=== PATIENT | male | born 1960 | race Two or more races ===

== ENCOUNTER 2016-08-05 15:14 | Emergency (ER) | payer SELFPAY ==
--- NOTE | 2016-08-05 15:46 | EDM.PDOC ---
ED HPI GENERAL MEDICAL PROBLEM - General Chief Complaint: Lower Extremity Injury/Pain Stated Complaint: RIGHT FOOT ULCER Time Seen by Provider: 08/05/16 15:22 Source of Information: Reports: Patient, RN Notes Reviewed History Limitations: Reports: Language Barrier (Used historic interpreter) - History of Present Illness INITIAL COMMENTS - FREE TEXT/NARRATIVE: Through an per diem interpreter, the patient states that he developed swelling, erythema , and pain to the sole of his right foot about a week ago. He presumes that he injured it, but does not recall a specific injury. He states that over the past couple of days the ulceration has had a watery drainage. The patient has taken Tylenol and a sleeping pill to treat the discomfort, but has not attempted to treat the wound with any home remedies, salves, or pumices. No prior similar symptoms. The patient believes that he has had a fever, but has not checked his temperature. He is afebrile here in the ED. The patient does not have a PCP. His last general physical exam was about 15 years ago. 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) Review of Systems - Review of Systems Review Of Systems: See Below Constitutional: Reports: Fever (subjective, as per the HPI) Eyes: Reports: No Symptoms Ears: Reports: No Symptoms Nose: Reports: No Symptoms Mouth/Throat: Reports: No Symptoms Respiratory: Reports: No Symptoms Cardiovascular: Reports: No Symptoms GI/Abdominal: Reports: No Symptoms Genitourinary: Reports: No Symptoms Musculoskeletal: Reports: No Symptoms Skin: Reports: No Symptoms Neurological: Reports: No Symptoms Psychiatric: Reports: No Symptoms Trauma Exam - Physical Exam Exam: See Below Exam Limited By: No Limitations General Appearance: Reports: Alert, WD/WN, No Apparent Distress Extremities: Other (There is a desquamated ulcer on the sole of the right foot, just proximal to being over the fifth MTP joint, measuring approximately 2.0 centimeters in diameter. There is a black center, consistent with eschar. Erythema with swelling extends medially across the sole of the foot. The ulcer and the erythematous area are tender to palpation. Neurovascular status of the right foot is intact.) Course - Vital Signs Last Recorded V/S: Last Vital Signs Temp 36.8 C 08/05/16 15:22 Pulse 88 08/05/16 15:22 Resp 18 08/05/16 15:22 BP 134/94 H 08/05/16 15:22 Pulse Ox 95 08/05/16 15:22 - Orders/Labs/Meds Orders: Active Orders 24 hr Category Date Time Status Accu Check [Blood Glucose Check, Bedside] [RC] ONETIME Care 08/05/16 15:43 Active Foot w Cont Rt [CT] Stat Exams 08/05/16 15:55 Taken Sodium Chloride 0.9% [Normal Saline] 1,000 ml Med 08/05/16 16:00 Active IV ASDIRECTED Sodium Chloride 0.9% [Saline Flush] Med 08/05/16 15:57 Active 10 ml FLUSH ONETIME PRN Medication Orders Sodium Chloride (Normal Saline) 1,000 mls @ 150 mls/hr IV ASDIRECTED GIBRAN Last Admin: 08/05/16 16:37 Dose: 150 mls/hr Sodium Chloride (Saline Flush) 10 ml FLUSH ONETIME PRN PRN Reason: IV FLUSH Last Admin: 08/05/16 16:22 Dose: 10 ml Labs: Laboratory Tests 08/05/16 08/05/16 Range/Units 16:00 16:00 WBC 17.94 H (4.23-9.07) K/mm3 RBC 5.28 (4.63-6.08) M/mm3 Hgb 15.4 (13.7-17.5) gm/L Hct 44.9 (40.1-51.0) % MCV 85.0 (79.0-92.2) fl MCH 29.2 (25.7-32.2) pg MCHC 34.3 (32.2-35.5) g/dl RDW Std Deviation 40.5 (35.1-43.9) fL Plt Count 329 (163-337) K/mm3 MPV 10.1 (9.4-12.3) fl Neutrophils % (Manual) 84 H (40-60) % Band Neutrophils % 0 (0-10) % Lymphocytes % (Manual) 6 L (20-40) % Atypical Lymphs % 2 % Monocytes % (Manual) 7 (2-10) % Eosinophils % (Manual) 1 (0.8-7.0) % Basophils % (Manual) 0 L (0.2-1.2) Platelet Estimate Adequate Plt Morphology Comment See note RBC Morph Comment Normal Sodium 136 (136-145) mEq/L Potassium 3.6 (3.5-5.1) mEq/L Chloride 99 (98-107) mEq/L Carbon Dioxide 29 (21-32) mEq/L Anion Gap 11.6 (5-15) BUN 13 (7-18) mg/dL Creatinine 1.0 (0.7-1.3) mg/dL Est Cr Clr Drug Dosing 58.33 mL/min Estimated GFR (MDRD) > 60 (>60) mL/min BUN/Creatinine Ratio 13.0 L (14-18) Glucose 115 H (74-106) mg/dL Calcium 9.2 (8.5-10.1) mg/dL Total Bilirubin 0.7 (0.2-1.0) mg/dL AST 27 (15-37) U/L ALT 39 (16-63) U/L Alkaline Phosphatase 105 (46-116) U/L Total Protein 8.9 H (6.4-8.2) g/dl Albumin 3.4 (3.4-5.0) g/dl Globulin 5.5 gm/dL Albumin/Globulin Ratio 0.6 L (1-2) Meds: Medications Generic Name Dose Route Start Last Admin Trade Name Freq PRN Reason Stop Dose Admin Sodium Chloride 1,000 mls @ 150 mls/hr 08/05/16 16:00 08/05/16 16:37 Normal Saline IV 150 mls/hr ASDIRECTED GIBRAN Administration Sodium Chloride 10 ml 08/05/16 15:57 08/05/16 16:22 Saline Flush FLUSH 10 ml ONETIME PRN Administration IV FLUSH Discontinued Medications Generic Name Dose Route Start Last Admin Trade Name Freq PRN Reason Stop Dose Admin Amoxicillin/Clavulanate Potassium 1 tab 08/05/16 15:56 08/05/16 16:39 Augmentin 875 Mg/125 Mg PO 08/05/16 15:57 1 tab ONETIME ONE Administration Hydromorphone HCl 0.5 mg 08/05/16 16:29 08/05/16 16:37 Dilaudid IVPUSH 08/05/16 16:30 0.5 mg ONETIME ONE Administration Hydromorphone HCl 0.5 mg 08/05/16 16:59 08/05/16 17:04 Dilaudid IVPUSH 08/05/16 17:00 0.5 mg ONETIME ONE Administration Iopamidol 100 ml 08/05/16 15:57 08/05/16 16:22 Isovue-300 (61%) IVPUSH 08/05/16 15:58 100 ml ONETIME ONE Administration Levofloxacin 500 mg 08/05/16 16:59 08/05/16 17:06 Levaquin PO 08/05/16 17:00 500 mg ONETIME STA Administration - Radiology Interpretation Free Text/Narrative:: CT of the foot with IV contrast is read by Dr. Ibrahim as: 1. Diffuse subcutaneous edema as well as skin thickening. 2. Soft tissue density within the ball of the foot at the level of the fifth MTP joint. As mentioned above, this could represent phlegmon or early abscess formation. MRI would be helpful to further evaluate. - Re-Assessments/Exams Free Text/Narrative Re-Assessment/Exam: 08/05/16 17:[address] Jackson at 15:19. He recommended we obtain a CT scan of the patient's foot to evaluate for an abscess, and would then come to the ED to evaluate the patient. Dr. Jackson has now evaluated the patient. Using a #11 blade, he unroofed the ulcer, obtaining a small amount of pus. He has reviewed the CT scan and does not believe there is a large fluid collection. He is recommending that the patient soak his foot in warm soapy water twice a day, and completely dry the foot. He is not to ambulate on his right foot. The patient will be prescribed oral amoxicillin and Levaquin, both of which he has been started on. He is to followup with Dr. Jackson on 08/07/2016. In the meantime, we will endeavor to arrange for wound therapy via PT, once or twice a week. Departure - Departure Time of Disposition: 17:43 Disposition: Home, Self-Care 01 Condition: fair Clinical Impression: Foot abscess, right - Discharge Information Referrals: PCP,None [Primary Care Provider] - Isaac Jackson MD [Physician] - Forms: ED Department Discharge Additional Instructions: You were seen in the emergency room for right foot swelling and pain. Workup in the ER included blood work and a CT scan of your foot. Your workup shows that you have an abscess in your right foot. This was drained by Dr. Jackson. You have been started on 2 antibiotics: Take one tablet of the antibiotic Augmentin every 12 hours, starting in the morning, 08/06/2016, as prescribed. Take one tablet of the antibiotic Levaquin daily, starting tomorrow afternoon, , as prescribed. Finish both prescriptions unless told otherwise by Dr. Jackosn. Take [id number] ibuprofen 2-3 tablets (400-600 mg) every 8 hours, with food, as needed for pain. You may take 1 to 2 tablets of the pain medicine [place] up to every 6 hours, as needed for pain not relieved by ibuprofen. If you take [place], do not drive or operate heavy machinery. Richmond will likely cause constipation, so consider taking a stool softener. You are to soak your foot in warm soapy water for 15 minutes, twice a day. You are to then COMPLETELY DRY your foot. You ARE NOT to walk on your right foot at all. Someone will contact you from wound therapy. You are to go once or twice a week. Followup with Dr. Jackson this 08/07/2016. If any other problems, please do not hesitate to return to the ER. - My Orders Last 24 Hours: My Active Orders 08/05/16 15:43 Accu Check [Blood Glucose Check, Bedside] [RC] ONETIME 08/05/16 15:55 Foot w Cont Rt [CT] Stat 08/05/16 15:57 Sodium Chloride 0.9% [Saline Flush] 10 ml FLUSH ONETIME PRN 08/05/16 16:00 Sodium Chloride 0.9% [Normal Saline] 1,000 ml IV ASDIRECTED - Assessment/Plan Last 24 Hours: My Active Orders 08/05/16 15:43 Accu Check [Blood Glucose Check, Bedside] [RC] ONETIME 05/24/17 15:55 Foot w Cont Rt [CT] Stat 08/05/16 15:57 Sodium Chloride 0.9% [Saline Flush] 10 ml FLUSH ONETIME PRN 08/05/16 16:00 Sodium Chloride 0.9% [Normal Saline] 1,000 ml IV ASDIRECTED
[2016-08-05] MEDS ORDERED: Amoxicillin/Clavulanate K 875-125 MG Tab PO ONE (15:56)
[2016-08-05] MEDS ORDERED: Iopamidol 612 MG/ML 100 ML Bottle IVPUSH ONE (15:57)
[2016-08-05] MEDS ORDERED: Sodium Chloride 0.9% 10 ML Syringe FLUSH PRN (15:57)
[2016-08-05] MEDS ORDERED: Sodium Chloride 0.9% 1,000 ML IV SCH (16:00)
[2016-08-05] MEDS ORDERED: HYDROmorphone 0.5 MG/0.5 ML Syringe IVPUSH ONE ×2 (16:29→16:59)
[2016-08-05] MEDS ORDERED: Levofloxacin 500 MG Tab PO STA (16:59)
[2016-08-05 19:03] VITALS: BP 130/91
--- NOTE | 2016-08-06 08:06 | CT ---
CT right foot Technique: Multiple axial sections were obtained through the right foot. Intravenous contrast was utilized. Findings: Diffuse subcutaneous edema is seen as well as skin thickening being seen. Focal soft tissue density is identified within the subcutaneous fat within the ball of the foot at the level of the fifth MTP joint. This focal density could represent phlegmon or early abscess formation. This area measures approximately 4.1 cm. No other finding suspicious for abscess is seen. No bony erosion is identified. No bony fracture is seen. Impression: 1. Diffuse subcutaneous edema as well as skin thickening. 2. Soft tissue density within the ball of the foot at the level of the fifth MTP joint. As mentioned above, this could represent phlegmon or early abscess formation. MRI would be helpful to further evaluate. Diagnostic code #3 MTDD
== END 2016-08-05 18:20 | disposition home or self-care (01) ==
LOC: JD.ED 15:14
DX: L02.611 Cutaneous abscess of right foot (principal)
CPT/HCPCS: 36415; 73701; 80053; 85025; 96361; 96374; 99284; A9270; J1170; J7040; J7050; Q9967; 99283

== ENCOUNTER 2016-08-13 11:53 | Inpatient (IN) | payer SELFPAY ==
--- NOTE | 2016-08-13 14:54 | EDM.PDOC ---
ED HPI GENERAL MEDICAL PROBLEM - General Chief Complaint: Lower Extremity Injury/Pain Stated Complaint: Foot infection Time Seen by Provider: 08/13/16 12:20 Source of Information: Reports: Patient, Old Records, RN Notes Reviewed History Limitations: Reports: Language Barrier (interpretation service utlized ) - History of Present Illness INITIAL COMMENTS - FREE TEXT/NARRATIVE: 56 year old , Albanian speaking, man presents to the ED for evaluation of right foot infection. The patient says he stepped on a nail prior to the onset of symptoms. He has redness, swelling, drainage, and open wounds to the lateral aspect of his right foot. He is not diabetic. He has felt feverish. He says the wound is has not worsened but also has not improved. He was initially seen in the ED on 08/05/[address] Alvarado. He underwent a CT of the foot at that time. The CT showed "1. diffuse subcutaneous edema and skin thickening. 2. soft tissue density within the ball of the foot at the level of the 5th MTP joint. This could represent phlegmon or early abscess formation. MRI would be helpful. Dr. Alvarado then consulted Dr. Jackson who "unroofed the ulcer" and obtained a small amount of pus. The patient was started on Levaquin and Augmentin. He was instructed to f/u with Dr. Jackson on 08/07/16 and also was referred to PT for wound management. The patient says he has been taking the antibiotics as prescribed but was unable to follow-up as directed because he did not have a ride. History was obtained through our video interpretation service. Right Feet Pain Score (Numeric/FACES): 6 - Related Data Allergies Allergy/AdvReac Type Severity Reaction Status Date / Time No Known Allergies Allergy Verified 08/05/16 16:24 Home Meds: Home Meds . 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) Review of Systems - Review of Systems Review Of Systems: See Below Constitutional: Reports: Fever Respiratory: Reports: No Symptoms Cardiovascular: Reports: No Symptoms Musculoskeletal: Reports: Foot Pain Skin: Reports: Wound ED EXAM, GENERAL - Physical Exam Exam: See Below Exam Limited By: No Limitations General Appearance: Alert, WD/WN, No Apparent Distress Respiratory/Chest: No Respiratory Distress, Lungs Clear Cardiovascular: Regular Rate, Rhythm Extremities: Increased Warmth (right foot), Redness (right foot ) Neurological: Alert, Oriented, No Motor/Sensory Deficits Skin Exam: Warm, Dry, Other (There is swelling, warmth and redness to the lateral aspect of the right foot. There is 3 areas of open wound that is draining yellow fluid. ) Course - Vital Signs Last Recorded V/S: Last Vital Signs Temp 97.6 F 08/13/16 12:07 Pulse 93 08/13/16 12:07 Resp 20 08/13/16 12:07 BP 127/95 H 08/13/16 12:07 Pulse Ox 95 08/13/16 12:07 - Orders/Labs/Meds Orders: Active Orders 24 hr Category Date Time Status Patient Status [ADT] Routine ADT 08/13/16 15:10 Ordered Peripheral IV Care [RC] . DIRECTED Care 08/13/16 14:59 Ordered Foot w wo Cont Lt [MR] Stat Exams 08/13/16 14:46 Ordered Sodium Chloride 0.9% [Saline Flush] Med 08/13/16 14:59 Ordered 10 ml FLUSH ASDIRECTED PRN Peripheral IV Insertion Adult [OM.PC] Stat Oth 08/13/16 14:59 Ordered Medication Orders Sodium Chloride (Saline Flush) 10 ml FLUSH ASDIRECTED PRN PRN Reason: Keep Vein Open Labs: Laboratory Tests 08/13/16 08/13/16 08/13/16 Range/Units 13:10 13:10 13:10 WBC 13.64 H (4.23-9.07) K/mm3 RBC 5.25 (4.63-6.08) M/mm3 Hgb 15.1 (13.7-17.5) gm/L Hct 44.9 (40.1-51.0) % MCV 85.5 (79.0-92.2) fl MCH 28.8 (25.7-32.2) pg MCHC 33.6 (32.2-35.5) g/dl RDW Std Deviation 40.2 (35.1-43.9) fL Plt Count 460 H (163-337) K/mm3 MPV 9.4 (9.4-12.3) fl Neutrophils % (Manual) 71 H (40-60) % Band Neutrophils % 0 (0-10) % Lymphocytes % (Manual) 16 L (20-40) % Atypical Lymphs % 0 % Monocytes % (Manual) 4 (2-10) % Eosinophils % (Manual) 9 H (0.8-7.0) % Basophils % (Manual) 0 L (0.2-1.2) Platelet Estimate Adequate RBC Morph Comment Normal ESR 86 H (0-15) mm/hr Sodium (136-145) mEq/L Potassium (3.5-5.1) mEq/L Chloride (98-107) mEq/L Carbon Dioxide (21-32) mEq/L Anion Gap (5-15) BUN (7-18) mg/dL Creatinine (0.7-1.3) mg/dL Est Cr Clr Drug Dosing mL/min Estimated GFR (MDRD) (>60) mL/min BUN/Creatinine Ratio (14-18) Glucose (74-106) mg/dL Calcium (8.5-10.1) mg/dL Total Bilirubin (0.2-1.0) mg/dL AST (15-37) U/L ALT (16-63) U/L Alkaline Phosphatase (46-116) U/L C-Reactive Protein 5.2 H* (<1.0) mg/dL Total Protein (6.4-8.2) g/dl Albumin (3.4-5.0) g/dl Globulin gm/dL Albumin/Globulin Ratio (1-2) 08/13/16 Range/Units 13:10 WBC (4.23-9.07) K/mm3 RBC (4.63-6.08) M/mm3 Hgb (13.7-17.5) gm/L Hct (40.1-51.0) % MCV (79.0-92.2) fl MCH (25.7-32.2) pg MCHC (32.2-35.5) g/dl RDW Std Deviation (35.1-43.9) fL Plt Count (163-337) K/mm3 MPV (9.4-12.3) fl Neutrophils % (Manual) (40-60) % Band Neutrophils % (0-10) % Lymphocytes % (Manual) (20-40) % Atypical Lymphs % % Monocytes % (Manual) (2-10) % Eosinophils % (Manual) (0.8-7.0) % Basophils % (Manual) (0.2-1.2) Platelet Estimate RBC Morph Comment ESR (0-15) mm/hr Sodium 138 (136-145) mEq/L Potassium 4.0 (3.5-5.1) mEq/L Chloride 102 (98-107) mEq/L Carbon Dioxide 23 (21-32) mEq/L Anion Gap 17.0 H (5-15) BUN 13 (7-18) mg/dL Creatinine 1.0 (0.7-1.3) mg/dL Est Cr Clr Drug Dosing 71.12 mL/min Estimated GFR (MDRD) > 60 (>60) mL/min BUN/Creatinine Ratio 13.0 L (14-18) Glucose 97 (74-106) mg/dL Calcium 9.1 (8.5-10.1) mg/dL Total Bilirubin 0.4 (0.2-1.0) mg/dL AST 25 (15-37) U/L ALT 45 (16-63) U/L Alkaline Phosphatase 88 (46-116) U/L C-Reactive Protein (<1.0) mg/dL Total Protein 9.5 H (6.4-8.2) g/dl Albumin 2.9 L (3.4-5.0) g/dl Globulin 6.6 gm/dL Albumin/Globulin Ratio 0.4 L (1-2) Meds: Medications Generic Name Dose Route Start Last Admin Trade Name Freq PRN Reason Stop Dose Admin Sodium Chloride 10 ml 08/13/16 14:59 Saline Flush FLUSH ASDIRECTED PRN Keep Vein Open - Re-Assessments/Exams Free Text/Narrative Re-Assessment/Exam: CBC reveals WBC of 13,000 which has improved. CRP is elevated at 5.2 and ESR is 86. I spoke to Dr. Jackson and discussed the patient's labs and exam findings. He recommends admission to medical service and MRI of the foot with possible OR debriedment tomorrow. I was able to set up an MRI of the foot today. The patient was made aware of cost of MRI and hospitalization. He is agreeable with plan. Recommend to have our financial services department speak to him about payment plans. I then updated Dr. Jackson that the MRI is scheduled for this afternoon. He will review the MRI and plan for OR if needed. I spoke to Hospitalist Dr. Vee who has agreed to admit the patient. She is aware of Dr. Jackson's recommendations and plan of care. Patient meets admission criteria. Online video interpretation service was utilized throughout the patient's stay in the ED. Departure - Departure Time of Disposition: 15:12 Disposition: Admitted As Inpatient 66 Condition: fair Clinical Impression: Foot abscess, right - Discharge Information Referrals: PCP,None [Primary Care Provider] - Forms: ED Department Discharge - My Orders Last 24 Hours: My Active Orders 08/13/16 14:46 Foot w wo Cont Lt [MR] Stat 08/13/16 14:59 Peripheral IV Care [RC] . DIRECTED Sodium Chloride 0.9% [Saline Flush] 10 ml FLUSH ASDIRECTED PRN Peripheral IV Insertion Adult [OM.PC] Stat 08/13/16 15:10 Patient Status [ADT] Routine - Assessment/Plan Last 24 Hours: My Active Orders 08/13/16 14:46 Foot w wo Cont Lt [MR] Stat 08/13/16 14:59 Peripheral IV Care [RC] . DIRECTED Sodium Chloride 0.9% [Saline Flush] 10 ml FLUSH ASDIRECTED PRN Peripheral IV Insertion Adult [OM.PC] Stat 08/13/16 15:10 Patient Status [ADT] Routine
[2016-08-13] MEDS ORDERED: Sodium Chloride 0.9% 10 ML Syringe FLUSH PRN (14:59)
[2016-08-13] MEDS ORDERED: Gadobenate Dimeglumine 529 MG/ML 15 ML SDV IVPUSH ONE (16:19)
[2016-08-13] MEDS ORDERED: Piperacillin/Tazobactam 4.5 GM in Sodium Chloride 0.9% 100 ML IV ONE ×2 (17:00→17:15)
[2016-08-13] MEDS ORDERED: Piperacillin/Tazobactam 4.5 GM in Sodium Chloride 0.9% 100 ML IV SCH (17:00)
[2016-08-13] MEDS ORDERED: Lactated Ringers 1,000 ML IV SCH ×2 (17:00→18:24)
[2016-08-13] MEDS ORDERED: Ketorolac 30 MG/ML SDV IVPUSH ONE (17:00)
--- NOTE | 2016-08-13 17:03 | PCM.HP ---
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 The patient initially injured his right foot by stepping on a nail while wearing shoes. He as subsequently seen in the ED on 08/05/16, at that time a CT of his foot was obtained which mentioned a possible abscess. His foot was drained by Dr Jackson, he was discharged and told to return for scheduled PT directed wound care. He reportedly took his medication but did not return for scheduled wound care. Additionally he was scheduled for an appt with Dr Jackson in his office, 2 days after his ulcer was drained/unroofed but did not show up as scheduled. He will be having an MRI for more detailed evaluation as well as initiated on IV antibiotics for failed outpatient treatment. MRI 08/13/16 on the day of admission documents a 2.8x3.3x0.8 abscess in the lateral aspect of the right foot; contrast enhancement in the proximal phalanx of the fifth toe is suspicious for osteomyelitis. Ortho consult with Dr Jackson to follow, IV ATB have been started. Onset of Symptoms: Reports: Sudden Duration of Symptoms: Reports: Day(s): Location: Reports: Lower Extremity, Right Quality: Reports: Throbbing Severity: Moderate Improves with: Reports: Medication Worsens with: Reports: Movement Context: Reports: Trauma (stepped on a nail, week of 07/24/16.) Associated Symptoms: Reports: Fever/Chills, Malaise, Weakness Right Feet Pain Score (Numeric/FACES): 6 - Related Data Allergies/Adverse Reactions: Allergies Allergy/AdvReac Type Severity Reaction Status Date / Time No Known Allergies Allergy Verified 08/05/16 16:24 Home Medications: Home Meds . 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) H&P Review of Systems - Review of Systems: Review Of Systems: See Below General: Reports: Fever, Malaise, Weakness HEENT: Reports: No Symptoms Pulmonary: Reports: No Symptoms Cardiovascular: Reports: No Symptoms Gastrointestinal: Reports: No Symptoms Genitourinary: Reports: No Symptoms Musculoskeletal: Reports: Foot Pain (right with purulent drainage) Skin: Reports: Wound (right plantart and lateral aspect) Psychiatric: Reports: No Symptoms Neurological: Reports: No Symptoms Hematologic/Lymphatic: Reports: No Symptoms Immunologic: Reports: No Symptoms Exam - Exam Exam: See Below - Vital Signs Vital Signs: Last Vital Signs Temp 36.4 C 08/13/16 12:07 Pulse 93 08/13/16 12:07 Resp 20 08/13/16 12:07 BP 127/95 H 08/13/16 12:07 Pulse Ox 95 08/13/16 12:07 Weight: 59.33 kg - Exam Quality Assessment: DVT Prophylaxis General: Alert, Oriented, Cooperative HEENT: EACs Clear, EOMI, Nares Patent, Normal Nasal Septum, Pupils Equal, Pupils Reactive Neck: Supple, Trachea Midline Lungs: Normal Respiratory Effort Cardiovascular: Regular Rate, Regular Rhythm Abdomen: Normal Bowel Sounds, Soft (Male) Exam: Deferred Rectal (Males) Exam: Deferred Back Exam: Normal Inspection Extremities: Normal Pulses Skin: Warm, Wound, Other (edema, swollen, tender; puncture site 0.5 cm) Neurological: Cranial Nerves Intact, Normal Speech Neuro Extensive - Mental Status: Alert, Oriented x3, Normal Mood/Affect, Normal Cognition, Memory Intact Neuro Extensive - Motor, Sensory, Reflexes: CN II-XII Intact Psychiatric: Alert, Normal Affect, Normal Mood - Patient Data Result Diagrams: 08/13/16 13:10 08/13/16 13:10 *Q Meaningful Use (ADM) - VTE *Q VTE Criteria *Q: - Stroke *Q Stroke Criteria *Q: - AMI *Q AMI Criteria *Q: - Problem List (1) Foot abscess, right SNOMED Code(s): 207870668 ICD Code: L02.611 - CUTANEOUS ABSCESS OF RIGHT FOOT Status: Acute Current Visit: Yes Problem List Initiated/Reviewed/Updated: Yes Orders Last 24hrs: Active Orders 24 hr Category Date Time Status Activity as Tolerated [RC] .Routine Care 08/13/16 16:40 Ordered Antiembolic Devices [RC] PER UNIT ROUTINE Care 08/13/16 16:51 Ordered Elevate Extremity [RC] BID Care 08/13/16 16:40 Ordered Consult to Occupational Therapy [OT Evaluation and Cons 08/13/16 16:46 Ordered Treatment] [CONS] Routine Consult to Physical Therapy [PT Evaluation and Cons 08/13/16 16:45 Ordered Treatment] [CONS] Routine Consult to Director Business Travel [CONS] Routine Cons 08/13/16 16:46 Ordered Heart Healthy Diet [DIET] Diet 08/13/16 Dinner Ordered BASIC METABOLIC PANEL,BMP [CHEM] DAILY Lab 08/14/16 05:00 Ordered BASIC METABOLIC PANEL,BMP [CHEM] DAILY Lab 08/15/16 05:00 Ordered BASIC METABOLIC PANEL,BMP [CHEM] DAILY Lab 08/16/16 05:00 Ordered BASIC METABOLIC PANEL,BMP [CHEM] DAILY Lab 08/17/16 05:00 Ordered CBC WITH AUTO DIFF [HEME] DAILY Lab 08/14/16 05:00 Ordered CBC WITH AUTO DIFF [HEME] DAILY Lab 08/15/16 05:00 Ordered CBC WITH AUTO DIFF [HEME] DAILY Lab 08/16/16 05:00 Ordered CBC WITH AUTO DIFF [HEME] DAILY Lab 08/17/16 05:00 Ordered CRP [C-REACTIVE PROTEIN] [CHEM] DAILY Lab 08/14/16 05:00 Ordered CRP [C-REACTIVE PROTEIN] [CHEM] DAILY Lab 08/15/16 05:00 Ordered CRP [C-REACTIVE PROTEIN] [CHEM] DAILY Lab 08/16/16 05:00 Ordered CRP [C-REACTIVE PROTEIN] [CHEM] DAILY Lab 08/17/16 05:00 Ordered GLYCOSYLATED HEMOGLOBIN,HGBA1C [CHEM] Routine Lab 08/14/16 05:00 Ordered INR,PT,PROTHROMBIN TIME [COAG] Routine Lab 08/14/16 05:00 Ordered MAGNESIUM [CHEM] DAILY Lab 08/14/16 05:00 Ordered MAGNESIUM [CHEM] DAILY Lab 08/15/16 05:00 Ordered MAGNESIUM [CHEM] DAILY Lab 08/16/16 05:00 Ordered MAGNESIUM [CHEM] DAILY Lab 08/17/16 05:00 Ordered PTT,PARTIAL THROMBOPLSTIN TIME [COAG] Routine Lab 08/14/16 05:00 Ordered Acetaminophen/HYDROcodone [[place] 325-5 MG] Med 08/13/16 16:53 Ordered 1 tab PO Q6H PRN Enoxaparin [Lovenox] Med 08/14/16 09:00 Ordered 40 mg SUBCUT DAILY Ketorolac [Toradol] Med 08/13/16 21:00 Ordered 30 mg IVPUSH Q6H Ketorolac [Toradol] Med 08/13/16 16:54 Once 60 mg IVPUSH ONETIME ONE Lactated Ringers @ 100 MLS/HR(1000ml Bag) Med 08/13/16 17:00 Ordered Lactated Ringers [Ringers, Lactated] 1,000 ml IV ASDIRECTED Morphine Med 08/13/16 16:49 Ordered 1 mg IVPUSH Q4H PRN Piperacillin/Tazobactam [Zosyn] 4.5 gm Med 08/13/16 17:00 Ordered Sodium Chloride 0.9% [Normal Saline] 100 ml IV Q8H Vancomycin 1 gm Med 08/13/16 17:00 Ordered Sodium Chloride 0.9% [Normal Saline] 250 ml IV Q12H Vancomycin Pharmacy to Dose [Pharmacy to Dose - Med 08/13/16 17:00 Ordered Vancomycin] 1 dose .XX ASDIRECTED [place] Hose [Antiembolic Hose] [OM.PC] Routine Oth 08/13/16 16:51 Ordered Code Status [Resuscitation Status] Routine Resus Stat 08/13/16 16:40 Ordered Medication Orders Hydrocodone Bitart/Acetaminophen ([place] 325-5 Mg) 1 tab PO Q6H PRN PRN Reason: Pain Enoxaparin Sodium (Lovenox) 40 mg SUBCUT DAILY [facility] Lactated Ringer's (Ringers, Lactated) 1,000 mls @ 100 mls/hr IV ASDIRECTED [facility] Piperacillin Sod/Tazobactam (Sod 4.5 gm/ Sodium Chloride) 100 mls @ 25 mls/hr IV Q8H [facility] Vancomycin HCl 1 gm/ Sodium (Chloride) 250 mls @ 250 mls/hr IV Q12H [facility] Ketorolac Tromethamine (Toradol) 60 mg IVPUSH ONETIME ONE Stop: 08/13/16 16:55 Ketorolac Tromethamine (Toradol) 30 mg IVPUSH Q6H [facility] Morphine Sulfate (Morphine) 1 mg IVPUSH Q4H PRN PRN Reason: Pain Sodium Chloride (Saline Flush) 10 ml FLUSH ASDIRECTED PRN PRN Reason: Keep Vein Open Last Admin: 08/13/16 16:32 Dose: 10 ml Vancomycin HCl (Pharmacy To Dose - Vancomycin) 1 dose .XX ASDIRECTED [facility] Assessment/Plan Comment:: Impression/Plan: Failed outpatient ATB without wound care as prescribed Failed follow up after bedside drainage 08/05/26 ABN MRI: Right foot multiloculated abscess. Possible osteomyelitis, right 5th toe. IVF Pain meds Zosyn Vancomycin MRSA screen Ortho consult NPO after midnight except meds SW-no insurance PT/OT Sow [employer] Technician as needed. DVT/GI prophylaxis PICC line TBA pre DC.
[2016-08-14] MEDS: Ketorolac 30 MG/ML SDV IVPUSH SCH ×2 (00:48→05:02)
[2016-08-14] MEDS: Piperacillin/Tazobactam 4.5 GM in Sodium Chloride 0.9% 100 ML IV SCH ×3 (00:49→17:27)
[2016-08-14] MEDS: Lactated Ringers 1,000 ML IV SCH (05:03)
--- NOTE | 2016-08-14 08:05 | PCM.SN ---
- Free Text/Narrative Note: Spoke with Dr. Jackson this morning re: patient. He is awaiting Dr. Ibrahim's review of MRI, pending his read/interp will determine if patient has I&D. Will maintain NPO until further instruction from cristiane Martinez held for this morning. Recommends PICC line insertion for medical cash poster IV abx. Anesthesia notified of order and request. Dr. Jackson saw patient last week; patient was to follow up in Ortho office for recheck but did not show.
[2016-08-14] MEDS: Morphine 2 MG/ML Syringe IVPUSH PRN (08:28)
[2016-08-14] MEDS ORDERED: Bupivacaine 0.25% 30 ML SDV ONE (08:41)
[2016-08-14] MEDS ORDERED: Lidocaine 1% 30 ML SDV ONE (08:41)
--- NOTE | 2016-08-14 08:44 | MR ---
MRI right foot Technique: Multiple axial, sagittal and coronal images were reviewed. Study was obtained with and without contrast. Comparison: Previous CT foot study of 08/05/16. Findings: Soft tissue thickening is seen around the mid and distal fifth metatarsal. Increased signal noted within this area of thickening on the long TR sequence. Diffuse enhancement is seen of this finding. There is non-enhancing area being seen along the sole of the foot compatible with abscess formation. This abscess measures around 3.3 cm in greatest size. There is slight enhancement within the adjacent distal fifth metatarsal and proximal phalanx of the fifth toe suspicious for osteomyelitis. Lesser soft tissue edema seen throughout other portions of the forefoot. Small incidental cyst within the first metatarsal head is seen. Impression: 1. Diffuse soft tissue thickening with abscess being seen along the lateral foot beneath the distal fifth metatarsal. Abscess has a measurement of around 3.3 cm. 2. Adjacent osteomyelitis is suspected within the distal fifth metatarsal and proximal phalanx of the fifth toe. 3. Diffuse soft tissue edema within the midfoot. Diagnostic code #5 I agree with preliminary report issued by [facility] ([facility] report finalized on 08/13/16, 6:11 PM Central Time)
--- NOTE | 2016-08-14 08:47 | PCM.PREANE ---
Preanesthetic Assessment - Anesthesia/Transfusion/Family Hx Anesthesia History: No Prior Anesthesia Family History of Anesthesia Reaction: No Transfusion History: No Prior Transfusion(s) Intubation History: Unknown - Review of Systems General: Fatigue, Malaise Pulmonary: No Symptoms Cardiovascular: No Symptoms Gastrointestinal: No symptoms Neurological: No Symptoms Other: Reports: None - Physical Assessment NPO Status Date: 08/14/16 NPO Status Time: 00:01 Pulse: 64 O2 Sat by Pulse Oximetry: 94 Respiratory Rate: 14 Blood Pressure: 115/76 Temperature: 37.0 C Vital Signs: Last Vital Signs Temp 37.0 C 08/14/16 07:45 Pulse 64 08/14/16 07:45 Resp 14 08/14/16 07:45 BP 115/76 08/14/16 07:45 Pulse Ox 94 L 08/14/16 07:45 Height: 1.65 m Weight: 60.781 kg ASA Class: 1E Mental Status: Alert & Oriented x3 Airway Class: Mallampati = 2 Dentition: Reports: Broken Tooth/Teeth, Missing Tooth/Teeth, Caries Thyro-Mental Finger Breadths: 3 Mouth Opening Finger Breadths: 3 ROM/Head Extension: Full Lungs: Clear to auscultation, Normal respiratory effort Cardiovascular: Regular Rate, Regular Rhythm - Lab Values: Laboratory Last Values WBC 9.03 K/mm3 (4.23-9.07) 08/14/16 05:43 RBC 4.52 M/mm3 (4.63-6.08) L 08/14/16 05:43 Hgb 13.1 gm/L (13.7-17.5) L 08/14/16 05:43 Hct 39.5 % (40.1-51.0) L 08/14/16 05:43 MCV 87.4 fl (79.0-92.2) 08/14/16 05:43 MCH 29.0 pg (25.7-32.2) 08/14/16 05:43 MCHC 33.2 g/dl (32.2-35.5) 08/14/16 05:43 RDW Std Deviation 40.9 fL (35.1-43.9) 08/14/16 05:43 Plt Count 415 K/mm3 (163-337) H 08/14/16 05:43 MPV 9.7 fl (9.4-12.3) 08/14/16 05:43 Neut % (Auto) 59.5 % (34.0-67.9) 08/14/16 05:43 Lymph % (Auto) 20.9 % (21.8-53.1) L 08/14/16 05:43 [place] % (Auto) 6.9 % (5.3-12.2) 08/14/16 05:43 Eos % (Auto) 11.4 (0.8-7.0) H 08/14/16 05:43 Baso % (Auto) 0.6 % (0.1-1.2) 08/14/16 05:43 Neut # (Auto) 5.38 K/mm3 (1.78-5.38) 08/14/16 05:43 Lymph # (Auto) 1.89 K/mm3 (1.32-3.57) 08/14/16 05:43 [place] # (Auto) 0.62 K/mm3 (0.30-0.82) 08/14/16 05:43 Eos # (Auto) 1.03 K/mm3 (0.04-0.54) H 08/14/16 05:43 Baso # (Auto) 0.05 K/mm3 (0.01-0.08) 08/14/16 05:43 Neutrophils % (Manual) 71 % (40-60) H 08/13/16 13:10 Band Neutrophils % 0 % (0-10) 08/13/16 13:10 Lymphocytes % (Manual) 16 % (20-40) L 08/13/16 13:10 Atypical Lymphs % 0 % 08/13/16 13:10 Monocytes % (Manual) 4 % (2-10) 08/13/16 13:10 Eosinophils % (Manual) 9 % (0.8-7.0) H 08/13/16 13:10 Basophils % (Manual) 0 (0.2-1.2) L 08/13/16 13:10 Manual Slide Review Abnormal smear 08/14/16 05:43 Platelet Estimate Adequate 08/13/16 13:10 RBC Morph Comment Normal 08/13/16 13:10 ESR 86 mm/hr (0-15) H 08/13/16 13:10 PT 11.5 SECONDS (8.0-13.0) 08/14/16 05:43 INR 1.05 08/14/16 05:43 APTT 32 SECONDS (22-36) 08/14/16 05:43 Sodium 142 mEq/L (136-145) 08/14/16 05:43 Potassium 4.1 mEq/L (3.5-5.1) 08/14/16 05:43 Chloride 108 mEq/L (98-107) H 08/14/16 05:43 Carbon Dioxide 24 mEq/L (21-32) 08/14/16 05:43 Anion Gap 14.1 (5-15) 08/14/16 05:43 BUN 14 mg/dL (7-18) 08/14/16 05:43 Creatinine 1.0 mg/dL (0.7-1.3) 08/14/16 05:43 Est Cr Clr Drug Dosing 70.91 mL/min 08/14/16 05:43 Estimated GFR (MDRD) > 60 mL/min (>60) 08/14/16 05:43 BUN/Creatinine Ratio 14.0 (14-18) 08/14/16 05:43 Glucose 110 mg/dL (74-106) H 08/14/16 05:43 Calcium 8.3 mg/dL (8.5-10.1) L 08/14/16 05:43 Magnesium 2.1 mg/dl (1.8-2.4) 08/14/16 05:43 Total Bilirubin 0.4 mg/dL (0.2-1.0) 08/13/16 13:10 AST 25 U/L (15-37) 08/13/16 13:10 ALT 45 U/L (16-63) 08/13/16 13:10 Alkaline Phosphatase 88 U/L (46-116) 08/13/16 13:10 C-Reactive Protein 3.6 mg/dL (<1.0) H* 08/14/16 05:43 Total Protein 9.5 g/dl (6.4-8.2) H 08/13/16 13:10 Albumin 2.9 g/dl (3.4-5.0) L 08/13/16 13:10 Globulin 6.6 gm/dL 08/13/16 13:10 Albumin/Globulin Ratio 0.4 (1-2) L 08/13/16 13:10 MRSA (PCR) Positive H 08/13/16 18:30 Above labs reviewed and noted and appropriate to proceed with scheduled procedure. - Allergies Allergies/Adverse Reactions: Allergies Allergy/AdvReac Type Severity Reaction Status Date / Time No Known Allergies Allergy Verified 08/05/16 16:24 - Anesthesia Plan Pre-Op Medication Ordered: None - Acknowledgements Anesthesia Type Planned: MAC Pt an Appropriate Candidate for the Planned Anesthesia: Yes Alternatives and Risks of Anesthesia Discussed w Pt/Guardian: Yes Pt/Guardian Understands and Agrees with Anesthesia Plan: Yes PreAnesthesia Questionnaire - Past Health History Medical/Surgical History: Denies Medical/Surgical History - Infectious Disease History Infectious Disease History: Reports: MRSA - SUBSTANCE USE Smoking Status *Q: Never Smoker Recreational Drug Use History: No - HOME MEDS Home Medications: Home Meds . [No Known Home Meds] 08/13/16 [History] - CURRENT (IN HOUSE) MEDS Current Meds: Current Medications Hydrocodone Bitart/Acetaminophen ([place] 325-5 Mg) 1 tab PO Q6H PRN PRN Reason: Pain Piperacillin Sod/Tazobactam (Sod 4.5 gm/ Sodium Chloride) 100 mls @ 25 mls/hr IV Q8H [facility] Last Admin: 08/14/16 08:27 Dose: 25 mls/hr Vancomycin HCl 750 mg/ Sodium (Chloride) 250 mls @ 250 mls/hr IV Q12H [facility] Lactated Ringer's (Ringers, Lactated) 1,000 mls @ 75 mls/hr IV ASDIRECTED [facility] Last Admin: 08/14/16 05:03 Dose: 75 mls/hr Morphine Sulfate (Morphine) 1 mg IVPUSH Q4H PRN PRN Reason: Pain Last Admin: 08/14/16 08:28 Dose: 1 mg Sodium Chloride (Saline Flush) 10 ml FLUSH ASDIRECTED PRN PRN Reason: Keep Vein Open Last Admin: 08/13/16 16:32 Dose: 10 ml Vancomycin HCl (Pharmacy To Dose - Vancomycin) 1 dose .XX ASDIRECTED [facility] Discontinued Medications Enoxaparin Sodium (Lovenox) 40 mg SUBCUT DAILY [facility] Gadobenate Dimeglumine (Multihance) 12 ml IVPUSH ONETIME ONE Stop: 08/13/16 16:20 Last Admin: 08/13/16 16:31 Dose: 12 ml Lactated Ringer's (Ringers, Lactated) 1,000 mls @ 100 mls/hr IV ASDIRECTED [facility] Last Admin: 08/13/16 17:32 Dose: 100 mls/hr Piperacillin Sod/Tazobactam (Sod 4.5 gm/ Sodium Chloride) 100 mls @ 200 mls/hr IV Q8H [facility] Last Admin: 08/13/16 20:10 Dose: Not Given Vancomycin HCl 1 gm/ Sodium (Chloride) 250 mls @ 250 mls/hr IV Q12H [facility] Last Admin: 08/13/16 20:10 Dose: Not Given Vancomycin HCl 1 gm/ Sodium (Chloride) 250 mls @ 250 mls/hr IV ONETIME ONE Stop: 08/13/16 18:14 Last Admin: 08/13/16 23:07 Dose: Not Given Piperacillin Sod/Tazobactam (Sod 4.5 gm/ Sodium Chloride) 100 mls @ 200 mls/hr IV ONETIME ONE Stop: 08/13/16 17:44 Piperacillin Sod/Tazobactam (Sod 4.5 gm/ Sodium Chloride) 100 mls @ 200 mls/hr IV ONETIME ONE Stop: 08/13/16 17:29 Last Admin: 08/13/16 17:31 Dose: 200 mls/hr Lactated Ringer's (Ringers, Lactated) 1,000 mls @ 100 mls/hr IV ASDIRECTED [facility] Stop: 08/14/16 02:25 Vancomycin HCl 1 gm/ Sodium (Chloride) 250 mls @ 250 mls/hr IV ONETIME ONE Stop: 08/13/16 21:29 Vancomycin HCl 1 gm/ Sodium (Chloride) 250 mls @ 250 mls/hr IV ONETIME ONE Stop: 08/13/16 21:29 Vancomycin HCl 1 gm/ Sodium (Chloride) 250 mls @ 250 mls/hr IV ONETIME ONE Stop: 08/13/16 21:59 Last Admin: 08/13/16 21:45 Dose: 250 mls/hr Ketorolac Tromethamine (Toradol) 60 mg IVPUSH ONETIME ONE Stop: 08/13/16 17:01 Last Admin: 08/13/16 17:25 Dose: 60 mg Ketorolac Tromethamine (Toradol) 30 mg IVPUSH Q6H [facility] Stop: 08/15/16 17:01 Last Admin: 08/14/16 05:02 Dose: 30 mg
--- NOTE | 2016-08-14 08:53 | PCM.PN ---
<Edyta Osborne M - Last Filed: 08/14/16 08:47> - General Info Date of Service: 08/14/16 Admission Dx/Problem (Free Text): Admission Diagnosis/Problem Admission Diagnosis/Problem Abscess Patient is seen this morning, in conjunction with Dr. Jackson, Ortho. Pain controlled, rt foot is elevated. VSS. Labs stable this am. Plans for I&D with ankle block this morning with Dr. Jackson. Patient consents to procedure, with assist of medical translator for interpretation. Functional Status: Reports: pain controlled, urinating. Denies: tolerating diet (NPO since MN), ambulating - Review of Systems General: Denies: Fever Pulmonary: Denies: shortness of breath Cardiovascular: Denies: Chest Pain Gastrointestinal: Denies: Abdominal pain, Diarrhea, Nausea, Vomiting Genitourinary: Reports: no symptoms Musculoskeletal: Reports: leg pain (rt foot) Skin: Reports: other (open, draining wound to right foot ) Neurological: Reports: No Symptoms Psychiatric: Reports: no symptoms - Patient Data Vitals - most recent: Last Vital Signs Temp 98.6 F 08/14/16 08:47 Pulse 64 08/14/16 08:47 Resp 14 08/14/16 08:47 BP 115/76 08/14/16 08:47 Pulse Ox 94 L 08/14/16 08:47 Weight - most recent: 60.781 kg I&O - last 24 hours: Intake & Output 08/13/16 08/14/16 08/14/16 22:59 06:59 14:59 Intake Total 0 1950 Output Total 500 Balance 0 1450 Lab Results last 24 hrs: Laboratory Results - last 24 hr 08/13/16 08/14/16 08/14/16 Range/Units 18:30 05:43 05:43 WBC 9.03 (4.23-9.07) K/mm3 RBC 4.52 L (4.63-6.08) M/mm3 Hgb 13.1 L (13.7-17.5) gm/L Hct 39.5 L (40.1-51.0) % MCV 87.4 (79.0-92.2) fl MCH 29.0 (25.7-32.2) pg MCHC 33.2 (32.2-35.5) g/dl RDW Std Deviation 40.9 (35.1-43.9) fL Plt Count 415 H (163-337) K/mm3 MPV 9.7 (9.4-12.3) fl Neut % (Auto) 59.5 (34.0-67.9) % Lymph % (Auto) 20.9 L (21.8-53.1) % [place] % (Auto) 6.9 (5.3-12.2) % Eos % (Auto) 11.4 H (0.8-7.0) Baso % (Auto) 0.6 (0.1-1.2) % Neut # (Auto) 5.38 (1.78-5.38) K/mm3 Lymph # (Auto) 1.89 (1.32-3.57) K/mm3 [place] # (Auto) 0.62 (0.30-0.82) K/mm3 Eos # (Auto) 1.03 H (0.04-0.54) K/mm3 Baso # (Auto) 0.05 (0.01-0.08) K/mm3 Manual Slide Review Abnormal smear PT (8.0-13.0) SECONDS INR APTT (22-36) SECONDS Sodium 142 (136-145) mEq/L Potassium 4.1 (3.5-5.1) mEq/L Chloride 108 H (98-107) mEq/L Carbon Dioxide 24 (21-32) mEq/L Anion Gap 14.1 (5-15) BUN 14 (7-18) mg/dL Creatinine 1.0 (0.7-1.3) mg/dL Est Cr Clr Drug Dosing 70.91 mL/min Estimated GFR (MDRD) > 60 (>60) mL/min BUN/Creatinine Ratio 14.0 (14-18) Glucose 110 H (74-106) mg/dL Hemoglobin A1c (4.50-6.20) % Calcium 8.3 L (8.5-10.1) mg/dL Magnesium 2.1 (1.8-2.4) mg/dl C-Reactive Protein 3.6 H* (<1.0) mg/dL MRSA (PCR) Positive H 08/14/16 08/14/16 Range/Units 05:43 05:43 WBC (4.23-9.07) K/mm3 RBC (4.63-6.08) M/mm3 Hgb (13.7-17.5) gm/L Hct (40.1-51.0) % MCV (79.0-92.2) fl MCH (25.7-32.2) pg MCHC (32.2-35.5) g/dl RDW Std Deviation (35.1-43.9) fL Plt Count (163-337) K/mm3 MPV (9.4-12.3) fl Neut % (Auto) (34.0-67.9) % Lymph % (Auto) (21.8-53.1) % [place] % (Auto) (5.3-12.2) % Eos % (Auto) (0.8-7.0) Baso % (Auto) (0.1-1.2) % Neut # (Auto) (1.78-5.38) K/mm3 Lymph # (Auto) (1.32-3.57) K/mm3 [place] # (Auto) (0.30-0.82) K/mm3 Eos # (Auto) (0.04-0.54) K/mm3 Baso # (Auto) (0.01-0.08) K/mm3 Manual Slide Review PT 11.5 (8.0-13.0) SECONDS INR 1.05 APTT 32 (22-36) SECONDS Sodium (136-145) mEq/L Potassium (3.5-5.1) mEq/L Chloride (98-107) mEq/L Carbon Dioxide (21-32) mEq/L Anion Gap (5-15) BUN (7-18) mg/dL Creatinine (0.7-1.3) mg/dL Est Cr Clr Drug Dosing mL/min Estimated GFR (MDRD) (>60) mL/min BUN/Creatinine Ratio (14-18) Glucose (74-106) mg/dL Hemoglobin A1c 6.10 (4.50-6.20) % Calcium (8.5-10.1) mg/dL Magnesium (1.8-2.4) mg/dl C-Reactive Protein (<1.0) mg/dL MRSA (PCR) Med Orders - Current: Current Medications Hydrocodone Bitart/Acetaminophen ([place] 325-5 Mg) 1 tab PO Q6H PRN PRN Reason: Pain Piperacillin Sod/Tazobactam (Sod 4.5 gm/ Sodium Chloride) 100 mls @ 25 mls/hr IV Q8H [facility] Last Admin: 08/14/16 08:27 Dose: 25 mls/hr Vancomycin HCl 750 mg/ Sodium (Chloride) 250 mls @ 250 mls/hr IV Q12H [facility] Lactated Ringer's (Ringers, Lactated) 1,000 mls @ 75 mls/hr IV ASDIRECTED [facility] Last Admin: 08/14/16 05:03 Dose: 75 mls/hr Morphine Sulfate (Morphine) 1 mg IVPUSH Q4H PRN PRN Reason: Pain Last Admin: 08/14/16 08:28 Dose: 1 mg Sodium Chloride (Saline Flush) 10 ml FLUSH ASDIRECTED PRN PRN Reason: Keep Vein Open Last Admin: 08/13/16 16:32 Dose: 10 ml Vancomycin HCl (Pharmacy To Dose - Vancomycin) 1 dose .XX ASDIRECTED [facility] Discontinued Medications Enoxaparin Sodium (Lovenox) 40 mg SUBCUT DAILY [facility] Gadobenate Dimeglumine (Multihance) 12 ml IVPUSH ONETIME ONE Stop: 08/13/16 16:20 Last Admin: 08/13/16 16:31 Dose: 12 ml Lactated Ringer's (Ringers, Lactated) 1,000 mls @ 100 mls/hr IV ASDIRECTED [facility] Last Admin: 08/13/16 17:32 Dose: 100 mls/hr Piperacillin Sod/Tazobactam (Sod 4.5 gm/ Sodium Chloride) 100 mls @ 200 mls/hr IV Q8H [facility] Last Admin: 08/13/16 20:10 Dose: Not Given Vancomycin HCl 1 gm/ Sodium (Chloride) 250 mls @ 250 mls/hr IV Q12H [facility] Last Admin: 08/13/16 20:10 Dose: Not Given Vancomycin HCl 1 gm/ Sodium (Chloride) 250 mls @ 250 mls/hr IV ONETIME ONE Stop: 08/13/16 18:14 Last Admin: 08/13/16 23:07 Dose: Not Given Piperacillin Sod/Tazobactam (Sod 4.5 gm/ Sodium Chloride) 100 mls @ 200 mls/hr IV ONETIME ONE Stop: 08/13/16 17:44 Piperacillin Sod/Tazobactam (Sod 4.5 gm/ Sodium Chloride) 100 mls @ 200 mls/hr IV ONETIME ONE Stop: 08/13/16 17:29 Last Admin: 08/13/16 17:31 Dose: 200 mls/hr Lactated Ringer's (Ringers, Lactated) 1,000 mls @ 100 mls/hr IV ASDIRECTED [facility] Stop: 08/14/16 02:25 Vancomycin HCl 1 gm/ Sodium (Chloride) 250 mls @ 250 mls/hr IV ONETIME ONE Stop: 08/13/16 21:29 Vancomycin HCl 1 gm/ Sodium (Chloride) 250 mls @ 250 mls/hr IV ONETIME ONE Stop: 08/13/16 21:29 Vancomycin HCl 1 gm/ Sodium (Chloride) 250 mls @ 250 mls/hr IV ONETIME ONE Stop: 08/13/16 21:59 Last Admin: 08/13/16 21:45 Dose: 250 mls/hr Ketorolac Tromethamine (Toradol) 60 mg IVPUSH ONETIME ONE Stop: 08/13/16 17:01 Last Admin: 08/13/16 17:25 Dose: 60 mg Ketorolac Tromethamine (Toradol) 30 mg IVPUSH Q6H [facility] Stop: 08/15/16 17:01 Last Admin: 08/14/16 05:02 Dose: 30 mg - Exam Quality Assessment: DVT prophylaxis (lovenox on hold this am for I&D procedure) General: alert, cooperative, no acute distress HEENT: Pupils equal, Pupils reactive, EOMI, Mucous membr. moist/pink Neck: supple Lungs: Clear to auscultation, Normal respiratory effort Cardiovascular: Regular Rate, Regular Rhythm Abdomen: bowel sounds present, soft, no tenderness (Male) Exam: Deferred Extremities: other (right foot is with wound to pad of 5th metatarsal, open and draining serosanguenous, yellow drainage. Swelling mild to lateral aspect of foot. CMS is + distally) Peripheral Pulses: 1+: Posterior Tibial (R), Dorsalis Pedis (L), Dorsalis Pedis (R) Skin: warm, other (see extremity exam for skin wound to rt fot) Neurological: no new focal deficit Psy/Mental Status: alert, normal affect, normal mood - Problem List & Annotations (1) Osteomyelitis of foot, right, acute SNOMED Code(s): 77290060 Code(s): M86.171 - OTHER ACUTE OSTEOMYELITIS, RIGHT ANKLE AND FOOT Status: Acute Priority: High Current Visit: Yes (2) Foot abscess, right SNOMED Code(s): 994377185 Code(s): L02.611 - CUTANEOUS ABSCESS OF RIGHT FOOT Status: Acute Priority : High Current Visit: Yes - Problem List Review Problem List Initiated/Reviewed/Updated: Yes - My Orders Last 24 Hours: My Active Orders 08/14/16 07:58 PICC Line Insertion [CR] Routine - Plan Plan:: Impression/Plan: Osteomyelitis of 5th metatarsal with abscess of foot -Failed outpatient ATB without wound care as prescribed -Failed follow up after bedside drainage 08/05/26 -Ortho for I&D today; this morning -PICC line insertion for fci antibiotics ABN MRI:Right foot multiloculated abscess. Possible osteomyelitis, right 5th toe. IVF Pain meds Zosyn Vancomycin MRSA screen--Positive Ortho consult- Dr. 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 DVT/GI prophylaxis Patient is Full Code status. <Angela Vee M - Last Filed: 08/14/16 09:37> - Patient Data Vitals - most recent: Last Vital Signs Temp 37.0 C 08/14/16 09:03 Pulse 64 08/14/16 09:03 Resp 14 08/14/16 09:03 BP 115/76 08/14/16 09:03 Pulse Ox 94 L 08/14/16 09:03 I&O - last 24 hours: Intake & Output 08/13/16 08/14/16 08/14/16 22:59 06:59 14:59 Intake Total 0 1950 Output Total 500 Balance 0 1450 Lab Results last 24 hrs: Laboratory Results - last 24 hr 08/13/16 08/14/16 08/14/16 Range/Units 18:30 05:43 05:43 WBC 9.03 (4.23-9.07) K/mm3 RBC 4.52 L (4.63-6.08) M/mm3 Hgb 13.1 L (13.7-17.5) gm/L Hct 39.5 L (40.1-51.0) % MCV 87.4 (79.0-92.2) fl MCH 29.0 (25.7-32.2) pg MCHC 33.2 (32.2-35.5) g/dl RDW Std Deviation 40.9 (35.1-43.9) fL Plt Count 415 H (163-337) K/mm3 MPV 9.7 (9.4-12.3) fl Neut % (Auto) 59.5 (34.0-67.9) % Lymph % (Auto) 20.9 L (21.8-53.1) % [place] % (Auto) 6.9 (5.3-12.2) % Eos % (Auto) 11.4 H (0.8-7.0) Baso % (Auto) 0.6 (0.1-1.2) % Neut # (Auto) 5.38 (1.78-5.38) K/mm3 Lymph # (Auto) 1.89 (1.32-3.57) K/mm3 [place] # (Auto) 0.62 (0.30-0.82) K/mm3 Eos # (Auto) 1.03 H (0.04-0.54) K/mm3 Baso # (Auto) 0.05 (0.01-0.08) K/mm3 Manual Slide Review Abnormal smear PT (8.0-13.0) SECONDS INR APTT (22-36) SECONDS Sodium 142 (136-145) mEq/L Potassium 4.1 (3.5-5.1) mEq/L Chloride 108 H (98-107) mEq/L Carbon Dioxide 24 (21-32) mEq/L Anion Gap 14.1 (5-15) BUN 14 (7-18) mg/dL Creatinine 1.0 (0.7-1.3) mg/dL Est Cr Clr Drug Dosing 70.91 mL/min Estimated GFR (MDRD) > 60 (>60) mL/min BUN/Creatinine Ratio 14.0 (14-18) Glucose 110 H (74-106) mg/dL Hemoglobin A1c (4.50-6.20) % Calcium 8.3 L (8.5-10.1) mg/dL Magnesium 2.1 (1.8-2.4) mg/dl C-Reactive Protein 3.6 H* (<1.0) mg/dL MRSA (PCR) Positive H 08/14/16 08/14/16 Range/Units 05:43 05:43 WBC (4.23-9.07) K/mm3 RBC (4.63-6.08) M/mm3 Hgb (13.7-17.5) gm/L Hct (40.1-51.0) % MCV (79.0-92.2) fl MCH (25.7-32.2) pg MCHC (32.2-35.5) g/dl RDW Std Deviation (35.1-43.9) fL Plt Count (163-337) K/mm3 MPV (9.4-12.3) fl Neut % (Auto) (34.0-67.9) % Lymph % (Auto) (21.8-53.1) % [place] % (Auto) (5.3-12.2) % Eos % (Auto) (0.8-7.0) Baso % (Auto) (0.1-1.2) % Neut # (Auto) (1.78-5.38) K/mm3 Lymph # (Auto) (1.32-3.57) K/mm3 [place] # (Auto) (0.30-0.82) K/mm3 Eos # (Auto) (0.04-0.54) K/mm3 Baso # (Auto) (0.01-0.08) K/mm3 Manual Slide Review PT 11.5 (8.0-13.0) SECONDS INR 1.05 APTT 32 (22-36) SECONDS Sodium (136-145) mEq/L Potassium (3.5-5.1) mEq/L Chloride (98-107) mEq/L Carbon Dioxide (21-32) mEq/L Anion Gap (5-15) BUN (7-18) mg/dL Creatinine (0.7-1.3) mg/dL Est Cr Clr Drug Dosing mL/min Estimated GFR (MDRD) (>60) mL/min BUN/Creatinine Ratio (14-18) Glucose (74-106) mg/dL Hemoglobin A1c 6.10 (4.50-6.20) % Calcium (8.5-10.1) mg/dL Magnesium (1.8-2.4) mg/dl C-Reactive Protein (<1.0) mg/dL MRSA (PCR) Med Orders - Current: Current Medications Hydrocodone Bitart/Acetaminophen ([place] 325-5 Mg) 1 tab PO Q6H PRN PRN Reason: Pain Piperacillin Sod/Tazobactam (Sod 4.5 gm/ Sodium Chloride) 100 mls @ 25 mls/hr IV Q8H [facility] Last Admin: 08/14/16 08:27 Dose: 25 mls/hr Lactated Ringer's (Ringers, Lactated) 1,000 mls @ 75 mls/hr IV ASDIRECTED [facility] Last Admin: 08/14/16 05:03 Dose: 75 mls/hr Vancomycin HCl 750 mg/ Sodium (Chloride) 250 mls @ 250 mls/hr IV Q12H [facility] Morphine Sulfate (Morphine) 1 mg IVPUSH Q4H PRN PRN Reason: Pain Last Admin: 08/14/16 08:28 Dose: 1 mg Sodium Chloride (Saline Flush) 10 ml FLUSH ASDIRECTED PRN PRN Reason: Keep Vein Open Last Admin: 08/13/16 16:32 Dose: 10 ml Vancomycin HCl (Pharmacy To Dose - Vancomycin) 1 dose .XX ASDIRECTED [facility] Discontinued Medications Bupivacaine HCl (Marcaine 0.25%) Confirm Administered Dose 30 ml .ROUTE .STK- MED ONE Stop: 08/14/16 08:42 Diphtheria/Tetanus/Acell Pertussis (Boostrix) 0.5 ml IM .ONCE ONE Stop: 08/14/16 09:07 Enoxaparin Sodium (Lovenox) 40 mg SUBCUT DAILY [facility] Fentanyl (Sublimaze) Confirm Administered Dose 100 mcg .ROUTE .STK-MED ONE Stop: 08/14/16 09:38 Gadobenate Dimeglumine (Multihance) 12 ml IVPUSH ONETIME ONE Stop: 08/13/16 16:20 Last Admin: 08/13/16 16:31 Dose: 12 ml Hydromorphone HCl (Dilaudid) Confirm Administered Dose 1 mg .ROUTE .STK-MED ONE Stop: 08/14/16 09:37 Lactated Ringer's (Ringers, Lactated) 1,000 mls @ 100 mls/hr IV ASDIRECTED [facility] Last Admin: 08/13/16 17:32 Dose: 100 mls/hr Piperacillin Sod/Tazobactam (Sod 4.5 gm/ Sodium Chloride) 100 mls @ 200 mls/hr IV Q8H [facility] Last Admin: 08/13/16 20:10 Dose: Not Given Vancomycin HCl 1 gm/ Sodium (Chloride) 250 mls @ 250 mls/hr IV Q12H [facility] Last Admin: 08/13/16 20:10 Dose: Not Given Vancomycin HCl 1 gm/ Sodium (Chloride) 250 mls @ 250 mls/hr IV ONETIME ONE Stop: 08/13/16 18:14 Last Admin: 08/13/16 23:07 Dose: Not Given Piperacillin Sod/Tazobactam (Sod 4.5 gm/ Sodium Chloride) 100 mls @ 200 mls/hr IV ONETIME ONE Stop: 08/13/16 17:44 Piperacillin Sod/Tazobactam (Sod 4.5 gm/ Sodium Chloride) 100 mls @ 200 mls/hr IV ONETIME ONE Stop: 08/13/16 17:29 Last Admin: 08/13/16 17:31 Dose: 200 mls/hr Vancomycin HCl 750 mg/ Sodium (Chloride) 250 mls @ 250 mls/hr IV Q12H [facility] Lactated Ringer's (Ringers, Lactated) 1,000 mls @ 100 mls/hr IV ASDIRECTED [facility] Stop: 08/14/16 02:25 Vancomycin HCl 1 gm/ Sodium (Chloride) 250 mls @ 250 mls/hr IV ONETIME ONE Stop: 08/13/16 21:29 Vancomycin HCl 1 gm/ Sodium (Chloride) 250 mls @ 250 mls/hr IV ONETIME ONE Stop: 08/13/16 21:29 Vancomycin HCl 1 gm/ Sodium (Chloride) 250 mls @ 250 mls/hr IV ONETIME ONE Stop: 08/13/16 21:59 Last Admin: 08/13/16 21:45 Dose: 250 mls/hr Lidocaine HCl (Xylocaine-Mpf 1%) Confirm Administered Dose 6 mls @ as directed .ROUTE .STK-MED ONE Stop: 08/14/16 09:37 Lactated Ringer's (Ringers, Lactated) Confirm Administered Dose 2,000 mls @ as directed .ROUTE .STK-MED ONE Stop: 08/14/16 09:37 Ketorolac Tromethamine (Toradol) 60 mg IVPUSH ONETIME ONE Stop: 08/13/16 17:01 Last Admin: 08/13/16 17:25 Dose: 60 mg Ketorolac Tromethamine (Toradol) 30 mg IVPUSH Q6H [facility] Stop: 08/15/16 17:01 Last Admin: 08/14/16 05:02 Dose: 30 mg Lidocaine HCl (Xylocaine-Mpf 1%) Confirm Administered Dose 30 ml .ROUTE .STK- MED ONE Stop: 08/14/16 08:42 Midazolam HCl (Versed 1 Mg/Ml) Confirm Administered Dose 2 mg .ROUTE .STK-MED ONE Stop: 08/14/16 09:38 Propofol (Diprivan 20 Ml) Confirm Administered Dose 200 mg .ROUTE .STK-MED ONE Stop: 08/14/16 09:38 - Problem List & Annotations (1) Foot abscess, right SNOMED Code(s): 777950833 Code(s): L02.611 - CUTANEOUS ABSCESS OF RIGHT FOOT Status: Acute Priority : High Current Visit: Yes - My Orders Last 24 Hours: My Active Orders 08/13/16 16:40 Activity as Tolerated [RC] .Routine Elevate Extremity [RC] BID Code Status [Resuscitation Status] Routine 08/13/16 16:45 Consult to Physical Therapy [PT Evaluation and Treatment] [CONS] Routine 08/13/16 16:46 Consult to Occupational Therapy [OT Evaluation and Treatment] [CONS] Routine Consult to Hospitality Aide [CONS] Routine 08/13/16 16:49 Morphine 1 mg IVPUSH Q4H PRN 08/13/16 16:51 Antiembolic Devices [RC] DAILY [place] Hose [Antiembolic Hose] [OM.PC] Routine 08/13/16 16:53 Acetaminophen/HYDROcodone [[place] 325-5 MG] 1 tab PO Q6H PRN 08/13/16 17:00 Vancomycin Pharmacy to Dose [Pharmacy to Dose - Vancomycin] 1 dose .XX ASDIRECTED 08/13/16 20:01 Consult to Physician [CONS] Routine 08/13/16 20:02 Notify Provider Consults [RC] ASDIRECTED 08/14/16 01:00 Piperacillin/Tazobactam [Zosyn] 4.5 gm Sodium Chloride 0.9% [Normal Saline] 100 ml IV Q8H 08/14/16 02:25 Lactated Ringers [Ringers, Lactated] 1,000 ml IV ASDIRECTED 08/14/16 09:06 Vaccines to be Administered [RC] PER UNIT ROUTINE 08/14/16 13:00 Vancomycin 750 mg Sodium Chloride 0.9% [Normal Saline] 250 ml IV Q12H 08/15/16 05:00 BASIC METABOLIC PANEL,BMP [CHEM] DAILY CBC WITH AUTO DIFF [HEME] DAILY CRP [C-REACTIVE PROTEIN] [CHEM] DAILY MAGNESIUM [CHEM] DAILY 08/16/16 05:00 BASIC METABOLIC PANEL,BMP [CHEM] DAILY CBC WITH AUTO DIFF [HEME] DAILY CRP [C-REACTIVE PROTEIN] [CHEM] DAILY MAGNESIUM [CHEM] DAILY 08/17/16 05:00 BASIC METABOLIC PANEL,BMP [CHEM] DAILY CBC WITH AUTO DIFF [HEME] DAILY CRP [C-REACTIVE PROTEIN] [CHEM] DAILY MAGNESIUM [CHEM] DAILY - Plan Plan:: Dr Jackson to perform I and D today
[2016-08-14] MEDS ORDERED: Enoxaparin 40 MG/0.4 ML Syringe SUBCUT SCH (09:00)
[2016-08-14] MEDS ORDERED: Diphtheria,Pertussis(Acell),Tetanus Vaccine 0.5 ML SDV inactive IM ONE (09:06)
[2016-08-14] MEDS ORDERED: Lactated Ringers 2,000 ML ONE (09:36)
[2016-08-14] MEDS ORDERED: Lidocaine 1% 6 ML ONE (09:36)
[2016-08-14] MEDS ORDERED: HYDROmorphone 1 MG/ML Syringe ONE (09:36)
[2016-08-14] MEDS ORDERED: Propofol 200 MG/20 ML SDV ONE (09:37)
[2016-08-14] MEDS ORDERED: Midazolam 1 MG/ML 2 ML SDV ONE (09:37)
[2016-08-14] MEDS ORDERED: fentaNYL 100 MCG/2 ML SDV ONE ×2 (09:37→10:18)
[2016-08-14] MEDS ORDERED: Ondansetron 4 MG/2 ML SDV ONE (09:53)
[2016-08-14] MEDS ORDERED: ceFAZolin 1 GM Vial ONE ×2 (10:21→10:22)
--- NOTE | 2016-08-14 11:39 | CR ---
Chest: Portable view of the chest was obtained. Comparison: No previous chest x-ray. Heart size is normal. Mild tortuosity of the thoracic aorta is seen. Lungs are clear. Bony structures are grossly intact. Right-sided PICC line is seen. Tip lies within the superior vena cava which is satisfactory in position. Impression: 1. Satisfactory position of PICC line. 2. Nothing acute is seen on portable chest x-ray. Diagnostic code #2
--- NOTE | 2016-08-14 12:06 | PCM48HPAN ---
Post Anesthesia Note - EVALUATION WITHIN 48HRS OF ANESTHETIC Vital Signs in Normal Range: Yes Patient Participated in Evaluation: Yes Respiratory Function Stable: Yes Airway Patent: Yes Cardiovascular Function Stable: Yes Hydration Status Stable: Yes Pain Control Satisfactory: Yes Nausea and Vomiting Control Satisfactory: Yes Mental Status Recovered: Yes - COMMENTS/OBSERVATIONS Free Text/Narrative:: Time correction: [facility]/ [facility] down prior to.
--- NOTE | 2016-08-14 12:19 | PCM.SN ---
- Free Text/Narrative Note: Date: 08/14/2016 Start: 1045 Stop: 1140 Time Out: 1045 (Assisted by ESTEVAN Reddy) Procedure: PICC Line placement for side stapler antibiotic therapy. Diagnosis: Abscess and Osteomyelitis of right foot. Anesthesia requested for PICC line placement. Patient educated on risk/benefits , allergies reviewed, medication list reviewed, patient agrees to proceed, consent obtained. (Moraima tool and production planner present to assist with language barrier) Patient positioned in supine position. Right arm prepped with 3 chloroprep's, 20 gauge angiocatheter already present to right antecubital area, sterile drapes placed, and sterile gown, gloves used, along with cap and mask. (Sterile Technique Noted) 1% lidocaine used to localize area. MicroIntroducer kit used: [facility] PICC 4 [place] catheter single lumen advanced without difficulties noted. REF: [id number] LOT: [id number] EXP: 2017-07-12 Catheter advanced and secured at 48 cm at the skin. Easy blood aspiration noted and catheter flushed with 40 ml's of Normal Saline. Mastisol/Steri-Strips placed, along with Tegaderm with chlorahexidine square applied, with dressing applied. Portable chest xray done and appropriate placement confirmed. Sierra Ramirez CRNA
[2016-08-14] MEDS: Acetaminophen/HYDROcodone 325-5 MG Tab PO PRN (19:20)
[2016-08-15] MEDS: Piperacillin/Tazobactam 4.5 GM in Sodium Chloride 0.9% 100 ML IV SCH ×3 (01:30→18:13)
[2016-08-15] MEDS: Lactated Ringers 1,000 ML IV SCH (03:08)
[2016-08-15] MEDS: Acetaminophen/HYDROcodone 325-5 MG Tab PO PRN ×2 (06:05→16:25)
--- NOTE | 2016-08-15 10:17 | PCM.PN ---
- General Info Date of Service: 08/15/16 Functional Status: Reports: pain controlled, tolerating diet, ambulating, urinating - Review of Systems General: Reports: Weakness HEENT: Reports: no symptoms Pulmonary: Reports: no symptoms Cardiovascular: Reports: No Symptoms Gastrointestinal: Reports: No symptoms Genitourinary: Reports: no symptoms Musculoskeletal: Reports: no symptoms Skin: Reports: no symptoms Neurological: Reports: No Symptoms Psychiatric: Reports: no symptoms - Patient Data Vitals - most recent: Last Vital Signs Temp 36.6 C 08/15/16 01:27 Pulse 70 08/15/16 01:27 Resp 14 08/15/16 01:27 BP 107/67 08/15/16 01:27 Pulse Ox 94 L 08/15/16 01:27 Weight - most recent: 62.686 kg I&O - last 24 hours: Intake & Output 08/14/16 08/15/16 08/15/16 22:59 06:59 14:59 Intake Total 1252 1894 Output Total 1900 4700 Balance -517 -2247 Lab Results last 24 hrs: Laboratory Results - last 24 hr 08/15/16 08/15/16 Range/Units 05:41 05:41 WBC 10.45 H (4.23-9.07) K/mm3 RBC 4.64 (4.63-6.08) M/mm3 Hgb 13.5 L (13.7-17.5) gm/L Hct 40.5 (40.1-51.0) % MCV 87.3 (79.0-92.2) fl MCH 29.1 (25.7-32.2) pg MCHC 33.3 (32.2-35.5) g/dl RDW Std Deviation 41.3 (35.1-43.9) fL Plt Count 425 H (163-337) K/mm3 MPV 9.8 (9.4-12.3) fl Neut % (Auto) 63.3 (34.0-67.9) % Lymph % (Auto) 19.3 L (21.8-53.1) % [place] % (Auto) 5.3 (5.3-12.2) % Eos % (Auto) 11.2 H (0.8-7.0) Baso % (Auto) 0.5 (0.1-1.2) % Neut # (Auto) 6.62 H (1.78-5.38) K/mm3 Lymph # (Auto) 2.02 (1.32-3.57) K/mm3 [place] # (Auto) 0.55 (0.30-0.82) K/mm3 Eos # (Auto) 1.17 H (0.04-0.54) K/mm3 Baso # (Auto) 0.05 (0.01-0.08) K/mm3 Sodium 138 (136-145) mEq/L Potassium 3.9 (3.5-5.1) mEq/L Chloride 105 (98-107) mEq/L Carbon Dioxide 26 (21-32) mEq/L Anion Gap 10.9 (5-15) BUN 10 (7-18) mg/dL Creatinine 1.0 (0.7-1.3) mg/dL Est Cr Clr Drug Dosing 71.64 mL/min Estimated GFR (MDRD) > 60 (>60) mL/min BUN/Creatinine Ratio 10.0 L (14-18) Glucose 95 (74-106) mg/dL Calcium 8.5 (8.5-10.1) mg/dL Magnesium 2.1 (1.8-2.4) mg/dl C-Reactive Protein 2.5 H* (<1.0) mg/dL Kaden Results last 24 hrs: Microbiology 08/14/16 10:02 Gram Stain - Final Foot, Right Anaerobic Culture - Preliminary (Mrsa) Staphylococcus Aureus 08/14/16 10:02 Gram Stain - Final Foot, Right Anaerobic Culture - Preliminary (Mrsa) Staphylococcus Aureus Med Orders - Current: Current Medications Hydrocodone Bitart/Acetaminophen ([place] 325-5 Mg) 1 tab PO Q6H PRN PRN Reason: Pain Last Admin: 08/15/16 06:05 Dose: 1 tab Piperacillin Sod/Tazobactam (Sod 4.5 gm/ Sodium Chloride) 100 mls @ 25 mls/hr IV Q8H [facility] Last Admin: 08/15/16 08:18 Dose: 25 mls/hr Lactated Ringer's (Ringers, Lactated) 1,000 mls @ 75 mls/hr IV ASDIRECTED [facility] Last Admin: 08/15/16 03:08 Dose: 75 mls/hr Vancomycin HCl 750 mg/ Sodium (Chloride) 250 mls @ 250 mls/hr IV Q12H [facility] Last Admin: 08/15/16 01:31 Dose: 250 mls/hr Morphine Sulfate (Morphine) 1 mg IVPUSH Q4H PRN PRN Reason: Pain Last Admin: 08/14/16 08:28 Dose: 1 mg Sodium Chloride (Saline Flush) 10 ml FLUSH ASDIRECTED PRN PRN Reason: Keep Vein Open Last Admin: 08/13/16 16:32 Dose: 10 ml Vancomycin HCl (Pharmacy To Dose - Vancomycin) 1 dose .XX ASDIRECTED [facility] Discontinued Medications Bupivacaine HCl (Marcaine 0.25%) Confirm Administered Dose 30 ml .ROUTE .STK- MED ONE Stop: 08/14/16 08:42 Last Admin: 08/14/16 09:59 Dose: 17.5 ml Cefazolin Sodium (Ancef) Confirm Administered Dose 1 gm .ROUTE .STK-MED ONE Stop: 08/14/16 10:22 Cefazolin Sodium (Ancef) Confirm Administered Dose 1 gm .ROUTE .STK-MED ONE Stop: 08/14/16 10:23 Diphtheria/Tetanus/Acell Pertussis (Boostrix) 0.5 ml IM .ONCE ONE Stop: 08/14/16 09:07 Enoxaparin Sodium (Lovenox) 40 mg SUBCUT DAILY [facility] Fentanyl (Sublimaze) Confirm Administered Dose 100 mcg .ROUTE .STK-MED ONE Stop: 08/14/16 09:38 Fentanyl (Sublimaze) Confirm Administered Dose 100 mcg .ROUTE .STK-MED ONE Stop: 08/14/16 10:19 Gadobenate Dimeglumine (Multihance) 12 ml IVPUSH ONETIME ONE Stop: 08/13/16 16:20 Last Admin: 08/13/16 16:31 Dose: 12 ml Hydromorphone HCl (Dilaudid) Confirm Administered Dose 1 mg .ROUTE .STK-MED ONE Stop: 08/14/16 09:37 Lactated Ringer's (Ringers, Lactated) 1,000 mls @ 100 mls/hr IV ASDIRECTED [facility] Last Admin: 08/13/16 17:32 Dose: 100 mls/hr Piperacillin Sod/Tazobactam (Sod 4.5 gm/ Sodium Chloride) 100 mls @ 200 mls/hr IV Q8H [facility] Last Admin: 08/13/16 20:10 Dose: Not Given Vancomycin HCl 1 gm/ Sodium (Chloride) 250 mls @ 250 mls/hr IV Q12H [facility] Last Admin: 08/13/16 20:10 Dose: Not Given Vancomycin HCl 1 gm/ Sodium (Chloride) 250 mls @ 250 mls/hr IV ONETIME ONE Stop: 08/13/16 18:14 Last Admin: 08/13/16 23:07 Dose: Not Given Piperacillin Sod/Tazobactam (Sod 4.5 gm/ Sodium Chloride) 100 mls @ 200 mls/hr IV ONETIME ONE Stop: 08/13/16 17:44 Piperacillin Sod/Tazobactam (Sod 4.5 gm/ Sodium Chloride) 100 mls @ 200 mls/hr IV ONETIME ONE Stop: 08/13/16 17:29 Last Admin: 08/13/16 17:31 Dose: 200 mls/hr Vancomycin HCl 750 mg/ Sodium (Chloride) 250 mls @ 250 mls/hr IV Q12H [facility] Last Admin: 08/14/16 10:53 Dose: Not Given Lactated Ringer's (Ringers, Lactated) 1,000 mls @ 100 mls/hr IV ASDIRECTED [facility] Stop: 08/14/16 02:25 Vancomycin HCl 1 gm/ Sodium (Chloride) 250 mls @ 250 mls/hr IV ONETIME ONE Stop: 08/13/16 21:29 Vancomycin HCl 1 gm/ Sodium (Chloride) 250 mls @ 250 mls/hr IV ONETIME ONE Stop: 08/13/16 21:29 Vancomycin HCl 1 gm/ Sodium (Chloride) 250 mls @ 250 mls/hr IV ONETIME ONE Stop: 08/13/16 21:59 Last Admin: 08/13/16 21:45 Dose: 250 mls/hr Lidocaine HCl (Xylocaine-Mpf 1%) Confirm Administered Dose 6 mls @ as directed .ROUTE .STK-MED ONE Stop: 08/14/16 09:37 Lactated Ringer's (Ringers, Lactated) Confirm Administered Dose 2,000 mls @ as directed .ROUTE .STK-MED ONE Stop: 08/14/16 09:37 Ketorolac Tromethamine (Toradol) 60 mg IVPUSH ONETIME ONE Stop: 08/13/16 17:01 Last Admin: 08/13/16 17:25 Dose: 60 mg Ketorolac Tromethamine (Toradol) 30 mg IVPUSH Q6H [facility] Stop: 08/15/16 17:01 Last Admin: 08/14/16 05:02 Dose: 30 mg Lidocaine HCl (Xylocaine-Mpf 1%) Confirm Administered Dose 30 ml .ROUTE .STK- MED ONE Stop: 08/14/16 08:42 Last Admin: 08/14/16 09:59 Dose: 17.5 ml Midazolam HCl (Versed 1 Mg/Ml) Confirm Administered Dose 2 mg .ROUTE .STK-MED ONE Stop: 08/14/16 09:38 Ondansetron HCl (Zofran) Confirm Administered Dose 4 mg .ROUTE .STK-MED ONE Stop: 08/14/16 09:54 Propofol (Diprivan 20 Ml) Confirm Administered Dose 200 mg .ROUTE .STK-MED ONE Stop: 08/14/16 09:38 - Exam Quality Assessment: DVT prophylaxis General: alert, oriented, cooperative, no acute distress HEENT: Pupils equal, Pupils reactive, EOMI, Mucous membr. moist/pink Neck: supple, trachea midline, no JVD Lungs: Normal respiratory effort Cardiovascular: Regular Rate, Regular Rhythm Abdomen: bowel sounds present, soft, no tenderness, no distension (Male) Exam: Deferred Back Exam: Normal Inspection Extremities: normal pulses, edema Peripheral Pulses: 2+: Carotid (L), Carotid (R) Skin: warm Wound/Incisions: no drainage, erythema improving Neurological: no new focal deficit Psy/Mental Status: alert, normal affect, normal mood - Problem List & Annotations (1) Foot abscess, right SNOMED Code(s): 155083974 Code(s): L02.611 - CUTANEOUS ABSCESS OF RIGHT FOOT Status: Acute Priority : High Current Visit: Yes - Problem List Review Problem List Initiated/Reviewed/Updated: Yes - My Orders Last 24 Hours: My Active Orders 08/14/16 10:02 CULTURE ANAEROBIC + SMEAR [RM] Routine 08/14/16 13:00 Vancomycin 750 mg Sodium Chloride 0.9% [Normal Saline] 250 ml IV Q12H 08/16/16 05:00 BASIC METABOLIC PANEL,BMP [CHEM] DAILY CBC WITH AUTO DIFF [HEME] DAILY CRP [C-REACTIVE PROTEIN] [CHEM] DAILY MAGNESIUM [CHEM] DAILY 08/17/16 05:00 BASIC METABOLIC PANEL,BMP [CHEM] DAILY CBC WITH AUTO DIFF [HEME] DAILY CRP [C-REACTIVE PROTEIN] [CHEM] DAILY MAGNESIUM [CHEM] DAILY - Plan Plan:: Impression/Plan: POD 1, S/P: I and D of right foot. Multiloculated abscess and OM Noncompliant with ATB care provided; had been prescribed Augmentin/Levoquin 08/05/16. S/P PICC line for OP ATBs. MRSA positive-isolation Dressing changes as orderwed Pain control with NSAIDS and narcotics Continue Vanco/Zosyn DVT/GI prophylaxis Follow up per ORTHO; DC TBA.
[2016-08-15] MEDS: Morphine 2 MG/ML Syringe IVPUSH PRN (10:42)
[2016-08-15] MEDS: Ketorolac 30 MG/ML SDV IVPUSH SCH ×2 (12:44→18:16)
[2016-08-16] MEDS: Ketorolac 30 MG/ML SDV IVPUSH SCH ×4 (00:10→17:02)
[2016-08-16] MEDS: Piperacillin/Tazobactam 4.5 GM in Sodium Chloride 0.9% 100 ML IV SCH ×3 (00:19→17:02)
--- NOTE | 2016-08-16 09:33 | PCM.PN ---
- General Info Date of Service: 08/16/16 Functional Status: Reports: pain controlled, tolerating diet, ambulating, urinating - Review of Systems General: Reports: No Symptoms HEENT: Reports: no symptoms Pulmonary: Reports: no symptoms Cardiovascular: Reports: No Symptoms Gastrointestinal: Reports: No symptoms Genitourinary: Reports: no symptoms Musculoskeletal: Reports: foot pain (right) Skin: Reports: no symptoms Neurological: Reports: No Symptoms Psychiatric: Reports: no symptoms - Patient Data Vitals - most recent: Last Vital Signs Temp 36.8 C 08/16/16 04:23 Pulse 62 08/16/16 04:23 Resp 15 08/16/16 04:23 BP 117/78 08/16/16 04:23 Pulse Ox 94 L 08/16/16 04:23 Weight - most recent: 62.278 kg I&O - last 24 hours: Intake & Output 08/15/16 08/16/16 08/16/16 22:59 06:59 14:59 Intake Total 1450 750 Output Total 2000 850 Balance -550 -100 Lab Results last 24 hrs: Laboratory Results - last 24 hr 08/15/16 08/16/16 08/16/16 Range/Units 12:32 04:50 04:50 WBC 8.51 (4.23-9.07) K/mm3 RBC 4.52 L (4.63-6.08) M/mm3 Hgb 13.2 L (13.7-17.5) gm/L Hct 39.6 L (40.1-51.0) % MCV 87.6 (79.0-92.2) fl MCH 29.2 (25.7-32.2) pg MCHC 33.3 (32.2-35.5) g/dl RDW Std Deviation 40.6 (35.1-43.9) fL Plt Count 443 H (163-337) K/mm3 MPV 9.7 (9.4-12.3) fl Neut % (Auto) 48.1 (34.0-67.9) % Lymph % (Auto) 28.7 (21.8-53.1) % [place] % (Auto) 6.7 (5.3-12.2) % Eos % (Auto) 14.9 H (0.8-7.0) Baso % (Auto) 1.1 (0.1-1.2) % Neut # (Auto) 4.10 (1.78-5.38) K/mm3 Lymph # (Auto) 2.44 (1.32-3.57) K/mm3 [place] # (Auto) 0.57 (0.30-0.82) K/mm3 Eos # (Auto) 1.27 H (0.04-0.54) K/mm3 Baso # (Auto) 0.09 H (0.01-0.08) K/mm3 Sodium 139 (136-145) mEq/L Potassium 4.0 (3.5-5.1) mEq/L Chloride 106 (98-107) mEq/L Carbon Dioxide 25 (21-32) mEq/L Anion Gap 12.0 (5-15) BUN 12 (7-18) mg/dL Creatinine 1.1 (0.7-1.3) mg/dL Est Cr Clr Drug Dosing 65.13 mL/min Estimated GFR (MDRD) > 60 (>60) mL/min BUN/Creatinine Ratio 10.9 L (14-18) Glucose 102 (74-106) mg/dL Calcium 8.5 (8.5-10.1) mg/dL Magnesium 2.2 (1.8-2.4) mg/dl C-Reactive Protein 2.4 H* (<1.0) mg/dL Vancomycin Trough 7.1 L (10.0-20.0) Kaden Results last 24 hrs: Microbiology 08/14/16 10:02 Gram Stain - Final Foot, Right Anaerobic Culture - Preliminary (Mrsa) Staphylococcus Aureus 08/14/16 10:02 Gram Stain - Final Foot, Right Anaerobic Culture - Preliminary (Mrsa) Staphylococcus Aureus Med Orders - Current: Current Medications Hydrocodone Bitart/Acetaminophen ([place] 325-5 Mg) 1 tab PO Q6H PRN PRN Reason: Pain Last Admin: 08/15/16 16:25 Dose: 1 tab Piperacillin Sod/Tazobactam (Sod 4.5 gm/ Sodium Chloride) 100 mls @ 25 mls/hr IV Q8H [facility] Last Admin: 08/16/16 08:48 Dose: 25 mls/hr Vancomycin HCl 1 gm/ Sodium (Chloride) 250 mls @ 250 mls/hr IV BID@0100,1300 [facility] Last Admin: 08/16/16 00:19 Dose: 250 mls/hr Ketorolac Tromethamine (Toradol) 30 mg IVPUSH Q6H [facility] Stop: 08/16/16 18:01 Last Admin: 08/16/16 05:42 Dose: 30 mg Morphine Sulfate (Morphine) 1 mg IVPUSH Q4H PRN PRN Reason: Pain Last Admin: 08/15/16 10:42 Dose: 1 mg Sodium Chloride (Saline Flush) 10 ml FLUSH ASDIRECTED PRN PRN Reason: Keep Vein Open Last Admin: 08/13/16 16:32 Dose: 10 ml Vancomycin HCl (Pharmacy To Dose - Vancomycin) 1 dose .XX ASDIRECTED [facility] Discontinued Medications Bupivacaine HCl (Marcaine 0.25%) Confirm Administered Dose 30 ml .ROUTE .STK- MED ONE Stop: 08/14/16 08:42 Last Admin: 08/14/16 09:59 Dose: 17.5 ml Cefazolin Sodium (Ancef) Confirm Administered Dose 1 gm .ROUTE .STK-MED ONE Stop: 08/14/16 10:22 Cefazolin Sodium (Ancef) Confirm Administered Dose 1 gm .ROUTE .STK-MED ONE Stop: 08/14/16 10:23 Diphtheria/Tetanus/Acell Pertussis (Boostrix) 0.5 ml IM .ONCE ONE Stop: 08/14/16 09:07 Enoxaparin Sodium (Lovenox) 40 mg SUBCUT DAILY [facility] Fentanyl (Sublimaze) Confirm Administered Dose 100 mcg .ROUTE .STK-MED ONE Stop: 08/14/16 09:38 Fentanyl (Sublimaze) Confirm Administered Dose 100 mcg .ROUTE .STK-MED ONE Stop: 08/14/16 10:19 Gadobenate Dimeglumine (Multihance) 12 ml IVPUSH ONETIME ONE Stop: 08/13/16 16:20 Last Admin: 08/13/16 16:31 Dose: 12 ml Hydromorphone HCl (Dilaudid) Confirm Administered Dose 1 mg .ROUTE .STK-MED ONE Stop: 08/14/16 09:37 Lactated Ringer's (Ringers, Lactated) 1,000 mls @ 100 mls/hr IV ASDIRECTED [facility] Last Admin: 08/13/16 17:32 Dose: 100 mls/hr Piperacillin Sod/Tazobactam (Sod 4.5 gm/ Sodium Chloride) 100 mls @ 200 mls/hr IV Q8H [facility] Last Admin: 08/13/16 20:10 Dose: Not Given Vancomycin HCl 1 gm/ Sodium (Chloride) 250 mls @ 250 mls/hr IV Q12H [facility] Last Admin: 08/13/16 20:10 Dose: Not Given Vancomycin HCl 1 gm/ Sodium (Chloride) 250 mls @ 250 mls/hr IV ONETIME ONE Stop: 08/13/16 18:14 Last Admin: 08/13/16 23:07 Dose: Not Given Piperacillin Sod/Tazobactam (Sod 4.5 gm/ Sodium Chloride) 100 mls @ 200 mls/hr IV ONETIME ONE Stop: 08/13/16 17:44 Piperacillin Sod/Tazobactam (Sod 4.5 gm/ Sodium Chloride) 100 mls @ 200 mls/hr IV ONETIME ONE Stop: 08/13/16 17:29 Last Admin: 08/13/16 17:31 Dose: 200 mls/hr Vancomycin HCl 750 mg/ Sodium (Chloride) 250 mls @ 250 mls/hr IV Q12H [facility] Last Admin: 08/14/16 10:53 Dose: Not Given Lactated Ringer's (Ringers, Lactated) 1,000 mls @ 100 mls/hr IV ASDIRECTED [facility] Stop: 08/14/16 02:25 Lactated Ringer's (Ringers, Lactated) 1,000 mls @ 75 mls/hr IV ASDIRECTED [facility] Last Admin: 08/15/16 03:08 Dose: 75 mls/hr Vancomycin HCl 1 gm/ Sodium (Chloride) 250 mls @ 250 mls/hr IV ONETIME ONE Stop: 08/13/16 21:29 Vancomycin HCl 1 gm/ Sodium (Chloride) 250 mls @ 250 mls/hr IV ONETIME ONE Stop: 08/13/16 21:29 Vancomycin HCl 1 gm/ Sodium (Chloride) 250 mls @ 250 mls/hr IV ONETIME ONE Stop: 08/13/16 21:59 Last Admin: 08/13/16 21:45 Dose: 250 mls/hr Vancomycin HCl 750 mg/ Sodium (Chloride) 250 mls @ 250 mls/hr IV Q12H [facility] Last Admin: 08/15/16 14:37 Dose: Not Given Lidocaine HCl (Xylocaine-Mpf 1%) Confirm Administered Dose 6 mls @ as directed .ROUTE .STK-MED ONE Stop: 08/14/16 09:37 Lactated Ringer's (Ringers, Lactated) Confirm Administered Dose 2,000 mls @ as directed .ROUTE .STK-MED ONE Stop: 08/14/16 09:37 Ketorolac Tromethamine (Toradol) 60 mg IVPUSH ONETIME ONE Stop: 08/13/16 17:01 Last Admin: 08/13/16 17:25 Dose: 60 mg Ketorolac Tromethamine (Toradol) 30 mg IVPUSH Q6H [facility] Stop: 08/15/16 17:01 Last Admin: 08/14/16 05:02 Dose: 30 mg Lidocaine HCl (Xylocaine-Mpf 1%) Confirm Administered Dose 30 ml .ROUTE .STK- MED ONE Stop: 08/14/16 08:42 Last Admin: 08/14/16 09:59 Dose: 17.5 ml Midazolam HCl (Versed 1 Mg/Ml) Confirm Administered Dose 2 mg .ROUTE .STK-MED ONE Stop: 08/14/16 09:38 Ondansetron HCl (Zofran) Confirm Administered Dose 4 mg .ROUTE .STK-MED ONE Stop: 08/14/16 09:54 Propofol (Diprivan 20 Ml) Confirm Administered Dose 200 mg .ROUTE .STK-MED ONE Stop: 08/14/16 09:38 - Exam Quality Assessment: central line/PICC, DVT prophylaxis General: alert, oriented, cooperative, no acute distress HEENT: Pupils equal, Pupils reactive, EOMI Neck: supple, trachea midline Lungs: Normal respiratory effort Cardiovascular: Regular Rate, Regular Rhythm Abdomen: bowel sounds present, soft, no tenderness, no distension (Male) Exam: Deferred Back Exam: Normal Inspection Extremities: normal pulses Skin: warm Wound/Incisions: drainage, erythema improving Neurological: no new focal deficit, normal speech Psy/Mental Status: alert, normal affect, normal mood - Problem List & Annotations (1) Foot abscess, right SNOMED Code(s): 194615309 Code(s): L02.611 - CUTANEOUS ABSCESS OF RIGHT FOOT Status: Acute Priority : High Current Visit: Yes - Problem List Review Problem List Initiated/Reviewed/Updated: Yes - My Orders Last 24 Hours: My Active Orders 08/15/16 12:00 Ketorolac [Toradol] 30 mg IVPUSH Q6H 08/15/16 14:00 Vancomycin [Vancocin] 1 gm Sodium Chloride 0.9% [Normal Saline] 250 ml IV BID@ 0100,1300 08/17/16 05:00 BASIC METABOLIC PANEL,BMP [CHEM] DAILY CBC WITH AUTO DIFF [HEME] DAILY CRP [C-REACTIVE PROTEIN] [CHEM] DAILY MAGNESIUM [CHEM] DAILY - Plan Plan:: Impression/Plan: POD 2, S/P: I and D of right foot. Multiloculated abscess and OM Noncompliant with ATB care provided; had been prescribed Augmentin/Levoquin 08/05/16. S/P PICC line for OP ATBs. MRSA positive-isolation Dressing changes as orderwed Pain control with NSAIDS and narcotics Continue Vanco/Zosyn DVT/GI prophylaxis Follow up per ORTHO; DC TBA. LOS>96n hours for IV ATBs needed, DC pending without destination, TBD.
[2016-08-16] MEDS: Acetaminophen/HYDROcodone 325-5 MG Tab PO PRN (21:35)
[2016-08-17] MEDS: Piperacillin/Tazobactam 4.5 GM in Sodium Chloride 0.9% 100 ML IV SCH (02:24)
[2016-08-17] MEDS: Enoxaparin 40 MG/0.4 ML Syringe SUBCUT SCH (10:59)
--- NOTE | 2016-08-17 13:31 | PCM.PN ---
<Edyta Osborne M - Last Filed: 08/17/16 13:26> - General Info Date of Service: 08/17/16 Admission Dx/Problem (Free Text): Admission Diagnosis/Problem Admission Diagnosis/Problem Abscess Patient is seen this morning; Pain controlled, rt foot is elevated. VSS. Labs stable this am. Functional Status: Reports: pain controlled, tolerating diet, ambulating (NWB to rt foot), urinating. Denies: new symptoms - Review of Systems General: Denies: Fever Pulmonary: Denies: shortness of breath, cough Cardiovascular: Denies: Chest Pain, Palpitations Gastrointestinal: Reports: No symptoms Musculoskeletal: Reports: foot pain - Patient Data Vitals - most recent: Last Vital Signs Temp 97.5 F 08/17/16 11:27 Pulse 66 08/17/16 11:27 Resp 14 08/17/16 11:27 BP 107/69 08/17/16 11:27 Pulse Ox 97 08/17/16 11:27 Weight - most recent: 62.188 kg I&O - last 24 hours: Intake & Output 08/16/16 08/17/16 08/17/16 22:59 06:59 14:59 Intake Total 1650 750 Output Total 750 1125 Balance 900 -375 Lab Results last 24 hrs: Laboratory Results - last 24 hr 08/17/16 08/17/16 08/17/16 Range/Units 05:06 05:06 12:10 WBC 9.24 H (4.23-9.07) K/mm3 RBC 4.70 (4.63-6.08) M/mm3 Hgb 13.6 L (13.7-17.5) gm/L Hct 41.2 (40.1-51.0) % MCV 87.7 (79.0-92.2) fl MCH 28.9 (25.7-32.2) pg MCHC 33.0 (32.2-35.5) g/dl RDW Std Deviation 41.2 (35.1-43.9) fL Plt Count 452 H (163-337) K/mm3 MPV 9.7 (9.4-12.3) fl Neut % (Auto) 53.6 (34.0-67.9) % Lymph % (Auto) 27.3 (21.8-53.1) % [place] % (Auto) 5.6 (5.3-12.2) % Eos % (Auto) 12.4 H (0.8-7.0) Baso % (Auto) 0.6 (0.1-1.2) % Neut # (Auto) 4.94 (1.78-5.38) K/mm3 Lymph # (Auto) 2.52 (1.32-3.57) K/mm3 [place] # (Auto) 0.52 (0.30-0.82) K/mm3 Eos # (Auto) 1.15 H (0.04-0.54) K/mm3 Baso # (Auto) 0.06 (0.01-0.08) K/mm3 Manual Slide Review Normal smear Sodium 139 (136-145) mEq/L Potassium 3.9 (3.5-5.1) mEq/L Chloride 106 (98-107) mEq/L Carbon Dioxide 25 (21-32) mEq/L Anion Gap 11.9 (5-15) BUN 16 (7-18) mg/dL Creatinine 1.0 (0.7-1.3) mg/dL Est Cr Clr Drug Dosing 71.64 mL/min Estimated GFR (MDRD) > 60 (>60) mL/min BUN/Creatinine Ratio 16.0 (14-18) Glucose 93 (74-106) mg/dL Calcium 8.5 (8.5-10.1) mg/dL Magnesium 2.1 (1.8-2.4) mg/dl C-Reactive Protein 1.5 H* (<1.0) mg/dL Vancomycin Trough 10.6 (10.0-20.0) Kaden Results last 24 hrs: Microbiology 08/14/16 10:02 Gram Stain - Final Foot, Right Anaerobic Culture - Final (Mrsa) Staphylococcus Aureus 08/14/16 10:02 Gram Stain - Final Foot, Right Anaerobic Culture - Final (Mrsa) Staphylococcus Aureus Med Orders - Current: Current Medications Hydrocodone Bitart/Acetaminophen ([place] 325-5 Mg) 1 tab PO Q6H PRN PRN Reason: Pain Last Admin: 08/16/16 21:35 Dose: 1 tab Enoxaparin Sodium (Lovenox) 40 mg SUBCUT DAILY [facility] Last Admin: 08/17/16 10:59 Dose: 40 mg Vancomycin HCl 1 gm/ Sodium (Chloride) 250 mls @ 250 mls/hr IV Q8H [facility] Morphine Sulfate (Morphine) 1 mg IVPUSH Q4H PRN PRN Reason: Pain Last Admin: 08/15/16 10:42 Dose: 1 mg Sodium Chloride (Saline Flush) 10 ml FLUSH ASDIRECTED PRN PRN Reason: Keep Vein Open Last Admin: 08/13/16 16:32 Dose: 10 ml Vancomycin HCl (Pharmacy To Dose - Vancomycin) 1 dose .XX ASDIRECTED [facility] Discontinued Medications Bupivacaine HCl (Marcaine 0.25%) Confirm Administered Dose 30 ml .ROUTE .STK- MED ONE Stop: 08/14/16 08:42 Last Admin: 08/14/16 09:59 Dose: 17.5 ml Cefazolin Sodium (Ancef) Confirm Administered Dose 1 gm .ROUTE .STK-MED ONE Stop: 08/14/16 10:22 Cefazolin Sodium (Ancef) Confirm Administered Dose 1 gm .ROUTE .STK-MED ONE Stop: 08/14/16 10:23 Diphtheria/Tetanus/Acell Pertussis (Boostrix) 0.5 ml IM .ONCE ONE Stop: 08/14/16 09:07 Enoxaparin Sodium (Lovenox) 40 mg SUBCUT DAILY [facility] Fentanyl (Sublimaze) Confirm Administered Dose 100 mcg .ROUTE .STK-MED ONE Stop: 08/14/16 09:38 Fentanyl (Sublimaze) Confirm Administered Dose 100 mcg .ROUTE .STK-MED ONE Stop: 08/14/16 10:19 Gadobenate Dimeglumine (Multihance) 12 ml IVPUSH ONETIME ONE Stop: 08/13/16 16:20 Last Admin: 08/13/16 16:31 Dose: 12 ml Hydromorphone HCl (Dilaudid) Confirm Administered Dose 1 mg .ROUTE .STK-MED ONE Stop: 08/14/16 09:37 Lactated Ringer's (Ringers, Lactated) 1,000 mls @ 100 mls/hr IV ASDIRECTED [facility] Last Admin: 08/13/16 17:32 Dose: 100 mls/hr Piperacillin Sod/Tazobactam (Sod 4.5 gm/ Sodium Chloride) 100 mls @ 200 mls/hr IV Q8H [facility] Last Admin: 08/13/16 20:10 Dose: Not Given Vancomycin HCl 1 gm/ Sodium (Chloride) 250 mls @ 250 mls/hr IV Q12H [facility] Last Admin: 08/13/16 20:10 Dose: Not Given Piperacillin Sod/Tazobactam (Sod 4.5 gm/ Sodium Chloride) 100 mls @ 25 mls/hr IV Q8H [facility] Last Admin: 08/17/16 02:24 Dose: 25 mls/hr Vancomycin HCl 1 gm/ Sodium (Chloride) 250 mls @ 250 mls/hr IV ONETIME ONE Stop: 08/13/16 18:14 Last Admin: 08/13/16 23:07 Dose: Not Given Piperacillin Sod/Tazobactam (Sod 4.5 gm/ Sodium Chloride) 100 mls @ 200 mls/hr IV ONETIME ONE Stop: 08/13/16 17:44 Piperacillin Sod/Tazobactam (Sod 4.5 gm/ Sodium Chloride) 100 mls @ 200 mls/hr IV ONETIME ONE Stop: 08/13/16 17:29 Last Admin: 08/13/16 17:31 Dose: 200 mls/hr Vancomycin HCl 750 mg/ Sodium (Chloride) 250 mls @ 250 mls/hr IV Q12H [facility] Last Admin: 08/14/16 10:53 Dose: Not Given Lactated Ringer's (Ringers, Lactated) 1,000 mls @ 100 mls/hr IV ASDIRECTED [facility] Stop: 08/14/16 02:25 Lactated Ringer's (Ringers, Lactated) 1,000 mls @ 75 mls/hr IV ASDIRECTED [facility] Last Admin: 08/15/16 03:08 Dose: 75 mls/hr Vancomycin HCl 1 gm/ Sodium (Chloride) 250 mls @ 250 mls/hr IV ONETIME ONE Stop: 08/13/16 21:29 Vancomycin HCl 1 gm/ Sodium (Chloride) 250 mls @ 250 mls/hr IV ONETIME ONE Stop: 08/13/16 21:29 Vancomycin HCl 1 gm/ Sodium (Chloride) 250 mls @ 250 mls/hr IV ONETIME ONE Stop: 08/13/16 21:59 Last Admin: 08/13/16 21:45 Dose: 250 mls/hr Vancomycin HCl 750 mg/ Sodium (Chloride) 250 mls @ 250 mls/hr IV Q12H [facility] Last Admin: 08/15/16 14:37 Dose: Not Given Lidocaine HCl (Xylocaine-Mpf 1%) Confirm Administered Dose 6 mls @ as directed .ROUTE .STK-MED ONE Stop: 08/14/16 09:37 Lactated Ringer's (Ringers, Lactated) Confirm Administered Dose 2,000 mls @ as directed .ROUTE .STK-MED ONE Stop: 08/14/16 09:37 Vancomycin HCl 1 gm/ Sodium (Chloride) 250 mls @ 250 mls/hr IV BID@0100,1300 [facility] Last Admin: 08/17/16 13:07 Dose: Not Given Ketorolac Tromethamine (Toradol) 60 mg IVPUSH ONETIME ONE Stop: 08/13/16 17:01 Last Admin: 08/13/16 17:25 Dose: 60 mg Ketorolac Tromethamine (Toradol) 30 mg IVPUSH Q6H [facility] Stop: 08/15/16 17:01 Last Admin: 08/14/16 05:02 Dose: 30 mg Ketorolac Tromethamine (Toradol) 30 mg IVPUSH Q6H [facility] Stop: 08/16/16 18:01 Last Admin: 08/16/16 17:02 Dose: 30 mg Lidocaine HCl (Xylocaine-Mpf 1%) Confirm Administered Dose 30 ml .ROUTE .STK- MED ONE Stop: 08/14/16 08:42 Last Admin: 08/14/16 09:59 Dose: 17.5 ml Midazolam HCl (Versed 1 Mg/Ml) Confirm Administered Dose 2 mg .ROUTE .STK-MED ONE Stop: 08/14/16 09:38 Ondansetron HCl (Zofran) Confirm Administered Dose 4 mg .ROUTE .STK-MED ONE Stop: 08/14/16 09:54 Propofol (Diprivan 20 Ml) Confirm Administered Dose 200 mg .ROUTE .STK-MED ONE Stop: 08/14/16 09:38 - Exam Quality Assessment: DVT prophylaxis General: alert, oriented, cooperative, no acute distress HEENT: Pupils equal, Pupils reactive, EOMI, Mucous membr. moist/pink Neck: supple Lungs: Clear to auscultation, Normal respiratory effort Cardiovascular: Regular Rate, Regular Rhythm Abdomen: bowel sounds present, soft, no tenderness (Male) Exam: Deferred Extremities: other (dressing CDI to rt foot) Neurological: no new focal deficit Psy/Mental Status: alert, normal affect, normal mood - Problem List & Annotations (1) Osteomyelitis of foot, right, acute SNOMED Code(s): 92435139 Code(s): M86.171 - OTHER ACUTE OSTEOMYELITIS, RIGHT ANKLE AND FOOT Status: Acute Priority: High Current Visit: Yes (2) Foot abscess, right SNOMED Code(s): 054352402 Code(s): L02.611 - CUTANEOUS ABSCESS OF RIGHT FOOT Status: Acute Priority : High Current Visit: Yes (3) Medically noncompliant SNOMED Code(s): 887078262 Code(s): Z91.19 - PATIENT'S NONCOMPLIANCE W OTH MEDICAL TREATMENT AND REGIMEN Status: Acute Priority: High Current Visit: Yes - Problem List Review Problem List Initiated/Reviewed/Updated: Yes - My Orders Last 24 Hours: My Active Orders 08/17/16 09:45 Enoxaparin [Lovenox] 40 mg SUBCUT DAILY 08/20/16 07:00 CBC W/O DIFF,HEMOGRAM [HEME] MOTH@0700 08/24/16 07:00 CBC W/O DIFF,HEMOGRAM [HEME] MOTH@0700 08/27/16 07:00 CBC W/O DIFF,HEMOGRAM [HEME] MOTH@0700 08/31/16 07:00 CBC W/O DIFF,HEMOGRAM [HEME] MOTH@0700 09/03/16 07:00 CBC W/O DIFF,HEMOGRAM [HEME] MOTH@0700 09/07/16 07:00 CBC W/O DIFF,HEMOGRAM [HEME] MOTH@0700 - Plan Plan:: Impression/Plan: Osteomyelitis right foot: POD 3, S/P: I and D of right foot with Dr. Jackson -Multiloculated abscess and OM -Noncompliant with ATB care provided; had been prescribed -Augmentin/Levoquin 08/05/16. S/P PICC line for OP ATBs. MRSA positive, PCR screening and wound culture positive for MRSA-isolation Dressing changes as ordered Pain control with NSAIDS and narcotics--requiring minimal pain medications Continue Vanco; DC zosyn as wound cx only + for MRSA, sensitive to vanco DVT/GI prophylaxis Follow up per ORTHO; JACQUI TBA. Patient is Full Code status LOS>96 hours for IV ATBs needed, prior noncompliance with medical treatment/ conservative outpatient management of this wound; PICC line in place would be high risk for discharge home with PICC in place. DC pending without destination , TBD. <Angela Vee Mahnaz - Last Filed: 08/17/16 15:35> - Patient Data Vitals - most recent: Last Vital Signs Temp 36.5 C 08/17/16 15:09 Pulse 67 08/17/16 15:09 Resp 16 08/17/16 15:09 BP 127/97 H 08/17/16 15:09 Pulse Ox 95 08/17/16 15:09 I&O - last 24 hours: Intake & Output 08/17/16 08/17/16 08/17/16 06:59 14:59 22:59 Intake Total 750 Output Total 1125 Balance -375 Lab Results last 24 hrs: Laboratory Results - last 24 hr 08/17/16 08/17/16 08/17/16 Range/Units 05:06 05:06 12:10 WBC 9.24 H (4.23-9.07) K/mm3 RBC 4.70 (4.63-6.08) M/mm3 Hgb 13.6 L (13.7-17.5) gm/L Hct 41.2 (40.1-51.0) % MCV 87.7 (79.0-92.2) fl MCH 28.9 (25.7-32.2) pg MCHC 33.0 (32.2-35.5) g/dl RDW Std Deviation 41.2 (35.1-43.9) fL Plt Count 452 H (163-337) K/mm3 MPV 9.7 (9.4-12.3) fl Neut % (Auto) 53.6 (34.0-67.9) % Lymph % (Auto) 27.3 (21.8-53.1) % [place] % (Auto) 5.6 (5.3-12.2) % Eos % (Auto) 12.4 H (0.8-7.0) Baso % (Auto) 0.6 (0.1-1.2) % Neut # (Auto) 4.94 (1.78-5.38) K/mm3 Lymph # (Auto) 2.52 (1.32-3.57) K/mm3 [place] # (Auto) 0.52 (0.30-0.82) K/mm3 Eos # (Auto) 1.15 H (0.04-0.54) K/mm3 Baso # (Auto) 0.06 (0.01-0.08) K/mm3 Manual Slide Review Normal smear Sodium 139 (136-145) mEq/L Potassium 3.9 (3.5-5.1) mEq/L Chloride 106 (98-107) mEq/L Carbon Dioxide 25 (21-32) mEq/L Anion Gap 11.9 (5-15) BUN 16 (7-18) mg/dL Creatinine 1.0 (0.7-1.3) mg/dL Est Cr Clr Drug Dosing 71.64 mL/min Estimated GFR (MDRD) > 60 (>60) mL/min BUN/Creatinine Ratio 16.0 (14-18) Glucose 93 (74-106) mg/dL Calcium 8.5 (8.5-10.1) mg/dL Magnesium 2.1 (1.8-2.4) mg/dl C-Reactive Protein 1.5 H* (<1.0) mg/dL Vancomycin Trough 10.6 (10.0-20.0) Kaden Results last 24 hrs: Microbiology 08/14/16 10:02 Gram Stain - Final Foot, Right Anaerobic Culture - Final (Mrsa) Staphylococcus Aureus 08/14/16 10:02 Gram Stain - Final Foot, Right Anaerobic Culture - Final (Mrsa) Staphylococcus Aureus Med Orders - Current: Current Medications Hydrocodone Bitart/Acetaminophen ([place] 325-5 Mg) 1 tab PO Q6H PRN PRN Reason: Pain Last Admin: 08/17/16 14:52 Dose: 1 tab Enoxaparin Sodium (Lovenox) 40 mg SUBCUT DAILY [facility] Last Admin: 08/17/16 10:59 Dose: 40 mg Vancomycin HCl 1 gm/ Sodium (Chloride) 250 mls @ 250 mls/hr IV Q8H [facility] Last Admin: 08/17/16 13:58 Dose: 250 mls/hr Morphine Sulfate (Morphine) 1 mg IVPUSH Q4H PRN PRN Reason: Pain Last Admin: 08/17/16 14:53 Dose: 1 mg Sodium Chloride (Saline Flush) 10 ml FLUSH ASDIRECTED PRN PRN Reason: Keep Vein Open Last Admin: 08/13/16 16:32 Dose: 10 ml Vancomycin HCl (Pharmacy To Dose - Vancomycin) 1 dose .XX ASDIRECTED [facility] Discontinued Medications Bupivacaine HCl (Marcaine 0.25%) Confirm Administered Dose 30 ml .ROUTE .STK- MED ONE Stop: 08/14/16 08:42 Last Admin: 08/14/16 09:59 Dose: 17.5 ml Cefazolin Sodium (Ancef) Confirm Administered Dose 1 gm .ROUTE .STK-MED ONE Stop: 08/14/16 10:22 Cefazolin Sodium (Ancef) Confirm Administered Dose 1 gm .ROUTE .STK-MED ONE Stop: 08/14/16 10:23 Diphtheria/Tetanus/Acell Pertussis (Boostrix) 0.5 ml IM .ONCE ONE Stop: 08/14/16 09:07 Enoxaparin Sodium (Lovenox) 40 mg SUBCUT DAILY [facility] Fentanyl (Sublimaze) Confirm Administered Dose 100 mcg .ROUTE .STK-MED ONE Stop: 08/14/16 09:38 Fentanyl (Sublimaze) Confirm Administered Dose 100 mcg .ROUTE .STK-MED ONE Stop: 08/14/16 10:19 Gadobenate Dimeglumine (Multihance) 12 ml IVPUSH ONETIME ONE Stop: 08/13/16 16:20 Last Admin: 08/13/16 16:31 Dose: 12 ml Hydromorphone HCl (Dilaudid) Confirm Administered Dose 1 mg .ROUTE .STK-MED ONE Stop: 08/14/16 09:37 Lactated Ringer's (Ringers, Lactated) 1,000 mls @ 100 mls/hr IV ASDIRECTED [facility] Last Admin: 08/13/16 17:32 Dose: 100 mls/hr Piperacillin Sod/Tazobactam (Sod 4.5 gm/ Sodium Chloride) 100 mls @ 200 mls/hr IV Q8H [facility] Last Admin: 08/13/16 20:10 Dose: Not Given Vancomycin HCl 1 gm/ Sodium (Chloride) 250 mls @ 250 mls/hr IV Q12H [facility] Last Admin: 08/13/16 20:10 Dose: Not Given Piperacillin Sod/Tazobactam (Sod 4.5 gm/ Sodium Chloride) 100 mls @ 25 mls/hr IV Q8H [facility] Last Admin: 08/17/16 02:24 Dose: 25 mls/hr Vancomycin HCl 1 gm/ Sodium (Chloride) 250 mls @ 250 mls/hr IV ONETIME ONE Stop: 08/13/16 18:14 Last Admin: 08/13/16 23:07 Dose: Not Given Piperacillin Sod/Tazobactam (Sod 4.5 gm/ Sodium Chloride) 100 mls @ 200 mls/hr IV ONETIME ONE Stop: 08/13/16 17:44 Piperacillin Sod/Tazobactam (Sod 4.5 gm/ Sodium Chloride) 100 mls @ 200 mls/hr IV ONETIME ONE Stop: 08/13/16 17:29 Last Admin: 08/13/16 17:31 Dose: 200 mls/hr Vancomycin HCl 750 mg/ Sodium (Chloride) 250 mls @ 250 mls/hr IV Q12H [facility] Last Admin: 08/14/16 10:53 Dose: Not Given Lactated Ringer's (Ringers, Lactated) 1,000 mls @ 100 mls/hr IV ASDIRECTED [facility] Stop: 08/14/16 02:25 Lactated Ringer's (Ringers, Lactated) 1,000 mls @ 75 mls/hr IV ASDIRECTED [facility] Last Admin: 08/15/16 03:08 Dose: 75 mls/hr Vancomycin HCl 1 gm/ Sodium (Chloride) 250 mls @ 250 mls/hr IV ONETIME ONE Stop: 08/13/16 21:29 Vancomycin HCl 1 gm/ Sodium (Chloride) 250 mls @ 250 mls/hr IV ONETIME ONE Stop: 08/13/16 21:29 Vancomycin HCl 1 gm/ Sodium (Chloride) 250 mls @ 250 mls/hr IV ONETIME ONE Stop: 08/13/16 21:59 Last Admin: 08/13/16 21:45 Dose: 250 mls/hr Vancomycin HCl 750 mg/ Sodium (Chloride) 250 mls @ 250 mls/hr IV Q12H [facility] Last Admin: 08/15/16 14:37 Dose: Not Given Lidocaine HCl (Xylocaine-Mpf 1%) Confirm Administered Dose 6 mls @ as directed .ROUTE .STK-MED ONE Stop: 08/14/16 09:37 Lactated Ringer's (Ringers, Lactated) Confirm Administered Dose 2,000 mls @ as directed .ROUTE .STK-MED ONE Stop: 08/14/16 09:37 Vancomycin HCl 1 gm/ Sodium (Chloride) 250 mls @ 250 mls/hr IV BID@0100,1300 [facility] Last Admin: 08/17/16 13:07 Dose: Not Given Ketorolac Tromethamine (Toradol) 60 mg IVPUSH ONETIME ONE Stop: 08/13/16 17:01 Last Admin: 08/13/16 17:25 Dose: 60 mg Ketorolac Tromethamine (Toradol) 30 mg IVPUSH Q6H [facility] Stop: 08/15/16 17:01 Last Admin: 08/14/16 05:02 Dose: 30 mg Ketorolac Tromethamine (Toradol) 30 mg IVPUSH Q6H [facility] Stop: 08/16/16 18:01 Last Admin: 08/16/16 17:02 Dose: 30 mg Lidocaine HCl (Xylocaine-Mpf 1%) Confirm Administered Dose 30 ml .ROUTE .STK- MED ONE Stop: 08/14/16 08:42 Last Admin: 08/14/16 09:59 Dose: 17.5 ml Midazolam HCl (Versed 1 Mg/Ml) Confirm Administered Dose 2 mg .ROUTE .STK-MED ONE Stop: 08/14/16 09:38 Ondansetron HCl (Zofran) Confirm Administered Dose 4 mg .ROUTE .STK-MED ONE Stop: 08/14/16 09:54 Propofol (Diprivan 20 Ml) Confirm Administered Dose 200 mg .ROUTE .STK-MED ONE Stop: 08/14/16 09:38 - Problem List & Annotations (1) Foot abscess, right SNOMED Code(s): 580571864 Code(s): L02.611 - CUTANEOUS ABSCESS OF RIGHT FOOT Status: Acute Priority : High Current Visit: Yes - My Orders Last 24 Hours: My Active Orders 08/17/16 13:30 Vancomycin [Vancocin] 1 gm Sodium Chloride 0.9% [Normal Saline] 250 ml IV Q8H 08/18/16 13:00 VANCOMYCIN TROUGH [CHEM] Timed - Plan Plan:: Healing appropriately, drop in inflammatory markers. Continue current IV ABT treatment.
[2016-08-17] MEDS: Acetaminophen/HYDROcodone 325-5 MG Tab PO PRN (14:52)
[2016-08-17] MEDS: Morphine 2 MG/ML Syringe IVPUSH PRN (14:53)
[2016-08-18] MEDS: Acetaminophen/HYDROcodone 325-5 MG Tab PO PRN (04:50)
[2016-08-18] MEDS: Enoxaparin 40 MG/0.4 ML Syringe SUBCUT SCH (09:48)
[2016-08-18] MEDS ORDERED: Vancomycin 1 GM, Vancomycin 500 MG in Sodium Chloride 0.9% 500 ML IV ONE (14:30)
--- NOTE | 2016-08-18 14:32 | PCM.PN ---
<Edyta Osborne M - Last Filed: 08/18/16 14:33> - General Info Date of Service: 08/18/16 Admission Dx/Problem (Free Text): Admission Diagnosis/Problem Admission Diagnosis/Problem Abscess Patient is seen this afternoon; Pain controlled, rt foot is elevated. VSS. Labs stable this am. Functional Status: Reports: pain controlled, tolerating diet, urinating. Denies : new symptoms - Review of Systems General: Denies: Fever Pulmonary: Denies: shortness of breath, cough Cardiovascular: Denies: Chest Pain, Dyspnea on Exertion, Edema Gastrointestinal: Denies: Abdominal pain, Diarrhea, Nausea, Vomiting Musculoskeletal: Reports: leg pain - Patient Data Vitals - most recent: Last Vital Signs Temp 98.4 F 08/18/16 11:23 Pulse 74 08/18/16 11:23 Resp 16 08/18/16 11:23 BP 100/66 08/18/16 11:23 Pulse Ox 95 08/18/16 11:23 Weight - most recent: 61.326 kg I&O - last 24 hours: Intake & Output 08/17/16 08/18/16 08/18/16 22:59 06:59 14:59 Intake Total 980 775 120 Output Total 900 400 Balance 80 375 120 Lab Results last 24 hrs: Laboratory Results - last 24 hr 08/18/16 Range/Units 13:18 Vancomycin Trough 18.4 (10.0-20.0) Kaden Results last 24 hrs: Microbiology 08/14/16 10:02 Gram Stain - Final Foot, Right Anaerobic Culture - Final (Mrsa) Staphylococcus Aureus 08/14/16 10:02 Gram Stain - Final Foot, Right Anaerobic Culture - Final (Mrsa) Staphylococcus Aureus Med Orders - Current: Current Medications Hydrocodone Bitart/Acetaminophen ([place] 325-5 Mg) 1 tab PO Q6H PRN PRN Reason: Pain Last Admin: 08/18/16 04:50 Dose: 1 tab Enoxaparin Sodium (Lovenox) 40 mg SUBCUT DAILY [facility]AN Last Admin: 08/18/16 09:48 Dose: 40 mg Vancomycin HCl 1 gm/Vancomycin HCl 500 mg/ Sodium Chloride 500 mls @ 333.333 mls/hr IV ONETIME ONE Stop: 08/18/16 15:59 Morphine Sulfate (Morphine) 1 mg IVPUSH Q4H PRN PRN Reason: Pain Last Admin: 08/17/16 14:53 Dose: 1 mg Sodium Chloride (Saline Flush) 10 ml FLUSH ASDIRECTED PRN PRN Reason: Keep Vein Open Last Admin: 08/13/16 16:32 Dose: 10 ml Vancomycin HCl (Pharmacy To Dose - Vancomycin) 1 dose .XX ASDIRECTED [facility] Discontinued Medications Bupivacaine HCl (Marcaine 0.25%) Confirm Administered Dose 30 ml .ROUTE .STK- MED ONE Stop: 08/14/16 08:42 Last Admin: 08/14/16 09:59 Dose: 17.5 ml Cefazolin Sodium (Ancef) Confirm Administered Dose 1 gm .ROUTE .STK-MED ONE Stop: 08/14/16 10:22 Cefazolin Sodium (Ancef) Confirm Administered Dose 1 gm .ROUTE .STK-MED ONE Stop: 08/14/16 10:23 Diphtheria/Tetanus/Acell Pertussis (Boostrix) 0.5 ml IM .ONCE ONE Stop: 08/14/16 09:07 Enoxaparin Sodium (Lovenox) 40 mg SUBCUT DAILY [facility] Fentanyl (Sublimaze) Confirm Administered Dose 100 mcg .ROUTE .STK-MED ONE Stop: 08/14/16 09:38 Fentanyl (Sublimaze) Confirm Administered Dose 100 mcg .ROUTE .STK-MED ONE Stop: 08/14/16 10:19 Gadobenate Dimeglumine (Multihance) 12 ml IVPUSH ONETIME ONE Stop: 08/13/16 16:20 Last Admin: 08/13/16 16:31 Dose: 12 ml Hydromorphone HCl (Dilaudid) Confirm Administered Dose 1 mg .ROUTE .STK-MED ONE Stop: 08/14/16 09:37 Lactated Ringer's (Ringers, Lactated) 1,000 mls @ 100 mls/hr IV ASDIRECTED [facility] Last Admin: 08/13/16 17:32 Dose: 100 mls/hr Piperacillin Sod/Tazobactam (Sod 4.5 gm/ Sodium Chloride) 100 mls @ 200 mls/hr IV Q8H [facility] Last Admin: 08/13/16 20:10 Dose: Not Given Vancomycin HCl 1 gm/ Sodium (Chloride) 250 mls @ 250 mls/hr IV Q12H [facility] Last Admin: 08/13/16 20:10 Dose: Not Given Piperacillin Sod/Tazobactam (Sod 4.5 gm/ Sodium Chloride) 100 mls @ 25 mls/hr IV Q8H [facility] Last Admin: 08/17/16 02:24 Dose: 25 mls/hr Vancomycin HCl 1 gm/ Sodium (Chloride) 250 mls @ 250 mls/hr IV ONETIME ONE Stop: 08/13/16 18:14 Last Admin: 08/13/16 23:07 Dose: Not Given Piperacillin Sod/Tazobactam (Sod 4.5 gm/ Sodium Chloride) 100 mls @ 200 mls/hr IV ONETIME ONE Stop: 08/13/16 17:44 Piperacillin Sod/Tazobactam (Sod 4.5 gm/ Sodium Chloride) 100 mls @ 200 mls/hr IV ONETIME ONE Stop: 08/13/16 17:29 Last Admin: 08/13/16 17:31 Dose: 200 mls/hr Vancomycin HCl 750 mg/ Sodium (Chloride) 250 mls @ 250 mls/hr IV Q12H [facility] Last Admin: 08/14/16 10:53 Dose: Not Given Lactated Ringer's (Ringers, Lactated) 1,000 mls @ 100 mls/hr IV ASDIRECTED [facility] Stop: 08/14/16 02:25 Lactated Ringer's (Ringers, Lactated) 1,000 mls @ 75 mls/hr IV ASDIRECTED [facility] Last Admin: 08/15/16 03:08 Dose: 75 mls/hr Vancomycin HCl 1 gm/ Sodium (Chloride) 250 mls @ 250 mls/hr IV ONETIME ONE Stop: 08/13/16 21:29 Vancomycin HCl 1 gm/ Sodium (Chloride) 250 mls @ 250 mls/hr IV ONETIME ONE Stop: 08/13/16 21:29 Vancomycin HCl 1 gm/ Sodium (Chloride) 250 mls @ 250 mls/hr IV ONETIME ONE Stop: 08/13/16 21:59 Last Admin: 08/13/16 21:45 Dose: 250 mls/hr Vancomycin HCl 750 mg/ Sodium (Chloride) 250 mls @ 250 mls/hr IV Q12H [facility] Last Admin: 08/15/16 14:37 Dose: Not Given Lidocaine HCl (Xylocaine-Mpf 1%) Confirm Administered Dose 6 mls @ as directed .ROUTE .STK-MED ONE Stop: 08/14/16 09:37 Lactated Ringer's (Ringers, Lactated) Confirm Administered Dose 2,000 mls @ as directed .ROUTE .[facility]-MED ONE Stop: 08/14/16 09:37 Vancomycin HCl 1 gm/ Sodium (Chloride) 250 mls @ 250 mls/hr IV BID@0100,1300 [facility] Last Admin: 08/17/16 13:07 Dose: Not Given Vancomycin HCl 1 gm/ Sodium (Chloride) 250 mls @ 250 mls/hr IV Q8H [facility] Last Admin: 08/18/16 04:43 Dose: 250 mls/hr Ketorolac Tromethamine (Toradol) 60 mg IVPUSH ONETIME ONE Stop: 08/13/16 17:01 Last Admin: 08/13/16 17:25 Dose: 60 mg Ketorolac Tromethamine (Toradol) 30 mg IVPUSH Q6H [facility] Stop: 08/15/16 17:01 Last Admin: 08/14/16 05:02 Dose: 30 mg Ketorolac Tromethamine (Toradol) 30 mg IVPUSH Q6H [facility] Stop: 08/16/16 18:01 Last Admin: 08/16/16 17:02 Dose: 30 mg Lidocaine HCl (Xylocaine-Mpf 1%) Confirm Administered Dose 30 ml .ROUTE .[facility] MED ONE Stop: 08/14/16 08:42 Last Admin: 08/14/16 09:59 Dose: 17.5 ml Midazolam HCl (Versed 1 Mg/Ml) Confirm Administered Dose 2 mg .ROUTE .[facility]-MED ONE Stop: 08/14/16 09:38 Ondansetron HCl (Zofran) Confirm Administered Dose 4 mg .ROUTE .[facility]-MED ONE Stop: 08/14/16 09:54 Propofol (Diprivan 20 Ml) Confirm Administered Dose 200 mg .ROUTE .[facility]-MED ONE Stop: 08/14/16 09:38 - Exam Quality Assessment: DVT prophylaxis General: alert, oriented, cooperative, no acute distress HEENT: Pupils equal, Pupils reactive, EOMI, Mucous membr. moist/pink Neck: supple Lungs: Clear to auscultation, Normal respiratory effort Cardiovascular: Regular Rate, Regular Rhythm Abdomen: bowel sounds present, soft, no tenderness, no distension (Male) Exam: Deferred Extremities: no edema, other (rt foot is with dressing CDI) Neurological: no new focal deficit Psy/Mental Status: alert, normal affect, normal mood - Problem List & Annotations (1) Osteomyelitis of foot, right, acute SNOMED Code(s): 29838807 Code(s): M86.171 - OTHER ACUTE OSTEOMYELITIS, RIGHT ANKLE AND FOOT Status: Acute Priority: High Current Visit: Yes (2) Foot abscess, right SNOMED Code(s): 891122214 Code(s): L02.611 - CUTANEOUS ABSCESS OF RIGHT FOOT Status: Acute Priority : High Current Visit: Yes (3) Medically noncompliant SNOMED Code(s): 854169109 Code(s): Z91.19 - PATIENT'S NONCOMPLIANCE W OTH MEDICAL TREATMENT AND REGIMEN Status: Acute Priority: High Current Visit: Yes - Problem List Review Problem List Initiated/Reviewed/Updated: Yes - My Orders Last 24 Hours: My Active Orders 08/20/16 07:00 CBC W/O DIFF,HEMOGRAM [HEME] MOTH@0700 08/24/16 07:00 CBC W/O DIFF,HEMOGRAM [HEME] MOTH@0700 08/27/16 07:00 CBC W/O DIFF,HEMOGRAM [HEME] MOTH@0700 08/31/16 07:00 CBC W/O DIFF,HEMOGRAM [HEME] MOTH@0700 09/03/16 07:00 CBC W/O DIFF,HEMOGRAM [HEME] MOTH@0700 09/07/16 07:00 CBC W/O DIFF,HEMOGRAM [HEME] MOTH@0700 - Plan Plan:: Impression/Plan: Osteomyelitis right foot: POD 4, S/P: I and D of right foot with Dr. Jackson -Multiloculated abscess and OM -Noncompliant with ATB care provided; had been prescribed -Augmentin/Levoquin 08/05/16. S/P PICC line for OP ATBs. MRSA positive, PCR screening and wound culture positive for MRSA-isolation Dressing changes as ordered Pain control with NSAIDS and narcotics--requiring minimal pain medications Continue Vanco; DC zosyn as wound cx only + for MRSA, sensitive to vanco DVT/GI prophylaxis Follow up per ORTHO; DC TBA. Patient is Full Code status LOS>96 hours for IV ATBs needed, prior noncompliance with medical treatment/ conservative outpatient management of this wound; PICC line in place would be high risk for discharge home with PICC in place. DC pending without destination , TBD. Healing appropriately, drop in inflammatory markers. Continue current IV ABT treatment. <MariuszAngela M - Last Filed: 08/18/16 16:44> - Patient Data Vitals - most recent: Last Vital Signs Temp 36.9 C 08/18/16 15:53 Pulse 80 08/18/16 15:53 Resp 12 08/18/16 15:53 BP 108/80 08/18/16 15:53 Pulse Ox 98 08/18/16 15:53 I&O - last 24 hours: Intake & Output 08/18/16 08/18/16 08/18/16 06:59 14:59 22:59 Intake Total 847 856 4773 Output Total 400 600 Balance 375 120 490 Lab Results last 24 hrs: Laboratory Results - last 24 hr 08/18/16 Range/Units 13:18 Vancomycin Trough 18.4 (10.0-20.0) Kaden Results last 24 hrs: Microbiology 08/14/16 10:02 Gram Stain - Final Foot, Right Anaerobic Culture - Final (Mrsa) Staphylococcus Aureus 08/14/16 10:02 Gram Stain - Final Foot, Right Anaerobic Culture - Final (Mrsa) Staphylococcus Aureus Med Orders - Current: Current Medications Hydrocodone Bitart/Acetaminophen ([place] 325-5 Mg) 1 tab PO Q6H PRN PRN Reason: Pain Last Admin: 08/18/16 04:50 Dose: 1 tab Enoxaparin Sodium (Lovenox) 40 mg SUBCUT DAILY GIB[facility] Last Admin: 08/18/16 09:48 Dose: 40 mg Morphine Sulfate (Morphine) 1 mg IVPUSH Q4H PRN PRN Reason: Pain Last Admin: 08/17/16 14:53 Dose: 1 mg Sodium Chloride (Saline Flush) 10 ml FLUSH ASDIRECTED PRN PRN Reason: Keep Vein Open Last Admin: 08/13/16 16:32 Dose: 10 ml Vancomycin HCl (Pharmacy To Dose - Vancomycin) 1 dose .XX ASDIRECTED [facility] Discontinued Medications Bupivacaine HCl (Marcaine 0.25%) Confirm Administered Dose 30 ml .ROUTE .STK- MED ONE Stop: 08/14/16 08:42 Last Admin: 08/14/16 09:59 Dose: 17.5 ml Cefazolin Sodium (Ancef) Confirm Administered Dose 1 gm .ROUTE .STK-MED ONE Stop: 08/14/16 10:22 Cefazolin Sodium (Ancef) Confirm Administered Dose 1 gm .ROUTE .STK-MED ONE Stop: 08/14/16 10:23 Diphtheria/Tetanus/Acell Pertussis (Boostrix) 0.5 ml IM .ONCE ONE Stop: 08/14/16 09:07 Enoxaparin Sodium (Lovenox) 40 mg SUBCUT DAILY [facility] Fentanyl (Sublimaze) Confirm Administered Dose 100 mcg .ROUTE .STK-MED ONE Stop: 08/14/16 09:38 Fentanyl (Sublimaze) Confirm Administered Dose 100 mcg .ROUTE .STK-MED ONE Stop: 08/14/16 10:19 Gadobenate Dimeglumine (Multihance) 12 ml IVPUSH ONETIME ONE Stop: 08/13/16 16:20 Last Admin: 08/13/16 16:31 Dose: 12 ml Hydromorphone HCl (Dilaudid) Confirm Administered Dose 1 mg .ROUTE .STK-MED ONE Stop: 08/14/16 09:37 Lactated Ringer's (Ringers, Lactated) 1,000 mls @ 100 mls/hr IV ASDIRECTED [facility] Last Admin: 08/13/16 17:32 Dose: 100 mls/hr Piperacillin Sod/Tazobactam (Sod 4.5 gm/ Sodium Chloride) 100 mls @ 200 mls/hr IV Q8H [facility] Last Admin: 08/13/16 20:10 Dose: Not Given Vancomycin HCl 1 gm/ Sodium (Chloride) 250 mls @ 250 mls/hr IV Q12H [facility] Last Admin: 08/13/16 20:10 Dose: Not Given Piperacillin Sod/Tazobactam (Sod 4.5 gm/ Sodium Chloride) 100 mls @ 25 mls/hr IV Q8H [facility] Last Admin: 08/17/16 02:24 Dose: 25 mls/hr Vancomycin HCl 1 gm/ Sodium (Chloride) 250 mls @ 250 mls/hr IV ONETIME ONE Stop: 08/13/16 18:14 Last Admin: 08/13/16 23:07 Dose: Not Given Piperacillin Sod/Tazobactam (Sod 4.5 gm/ Sodium Chloride) 100 mls @ 200 mls/hr IV ONETIME ONE Stop: 08/13/16 17:44 Piperacillin Sod/Tazobactam (Sod 4.5 gm/ Sodium Chloride) 100 mls @ 200 mls/hr IV ONETIME ONE Stop: 08/13/16 17:29 Last Admin: 08/13/16 17:31 Dose: 200 mls/hr Vancomycin HCl 750 mg/ Sodium (Chloride) 250 mls @ 250 mls/hr IV Q12H [facility] Last Admin: 08/14/16 10:53 Dose: Not Given Lactated Ringer's (Ringers, Lactated) 1,000 mls @ 100 mls/hr IV ASDIRECTED [facility] Stop: 08/14/16 02:25 Lactated Ringer's (Ringers, Lactated) 1,000 mls @ 75 mls/hr IV ASDIRECTED [facility] Last Admin: 08/15/16 03:08 Dose: 75 mls/hr Vancomycin HCl 1 gm/ Sodium (Chloride) 250 mls @ 250 mls/hr IV ONETIME ONE Stop: 08/13/16 21:29 Vancomycin HCl 1 gm/ Sodium (Chloride) 250 mls @ 250 mls/hr IV ONETIME ONE Stop: 08/13/16 21:29 Vancomycin HCl 1 gm/ Sodium (Chloride) 250 mls @ 250 mls/hr IV ONETIME ONE Stop: 08/13/16 21:59 Last Admin: 08/13/16 21:45 Dose: 250 mls/hr Vancomycin HCl 750 mg/ Sodium (Chloride) 250 mls @ 250 mls/hr IV Q12H [facility] Last Admin: 08/15/16 14:37 Dose: Not Given Lidocaine HCl (Xylocaine-Mpf 1%) Confirm Administered Dose 6 mls @ as directed .ROUTE .STK-MED ONE Stop: 08/14/16 09:37 Lactated Ringer's (Ringers, Lactated) Confirm Administered Dose 2,000 mls @ as directed .ROUTE .STK-MED ONE Stop: 08/14/16 09:37 Vancomycin HCl 1 gm/ Sodium (Chloride) 250 mls @ 250 mls/hr IV BID@0100,1300 [facility] Last Admin: 08/17/16 13:07 Dose: Not Given Vancomycin HCl 1 gm/ Sodium (Chloride) 250 mls @ 250 mls/hr IV Q8H [facility] Last Admin: 08/18/16 15:47 Dose: Not Given Vancomycin HCl 1 gm/Vancomycin HCl 500 mg/ Sodium Chloride 500 mls @ 333.333 mls/hr IV ONETIME ONE Stop: 08/18/16 15:59 Last Admin: 08/18/16 14:48 Dose: 333.333 mls/hr Ketorolac Tromethamine (Toradol) 60 mg IVPUSH ONETIME ONE Stop: 08/13/16 17:01 Last Admin: 08/13/16 17:25 Dose: 60 mg Ketorolac Tromethamine (Toradol) 30 mg IVPUSH Q6H [facility] Stop: 08/15/16 17:01 Last Admin: 08/14/16 05:02 Dose: 30 mg Ketorolac Tromethamine (Toradol) 30 mg IVPUSH Q6H [facility] Stop: 08/16/16 18:01 Last Admin: 08/16/16 17:02 Dose: 30 mg Lidocaine HCl (Xylocaine-Mpf 1%) Confirm Administered Dose 30 ml .ROUTE .STK- MED ONE Stop: 08/14/16 08:42 Last Admin: 08/14/16 09:59 Dose: 17.5 ml Midazolam HCl (Versed 1 Mg/Ml) Confirm Administered Dose 2 mg .ROUTE .STK-MED ONE Stop: 08/14/16 09:38 Ondansetron HCl (Zofran) Confirm Administered Dose 4 mg .ROUTE .STK-MED ONE Stop: 08/14/16 09:54 Propofol (Diprivan 20 Ml) Confirm Administered Dose 200 mg .ROUTE .STK-MED ONE Stop: 08/14/16 09:38 - Problem List & Annotations (1) Foot abscess, right SNOMED Code(s): 133343959 Code(s): L02.611 - CUTANEOUS ABSCESS OF RIGHT FOOT Status: Acute Priority : High Current Visit: Yes - My Orders Last 24 Hours: My Active Orders 08/18/16 13:34 PICC Discontinue [Central Line PICC Discontinue] [OM.PC] Routine - Plan Plan:: Have formulated a plan for DC: IV ATBs 2 wks; oral ATBs 4 weeks. DC today with stay in [place] at a mot. PICC line will be DC'd, IV site will be used..
[2016-08-18 15:55] VITALS: BP 108/80
--- NOTE | 2016-08-24 07:33 | PCM.OPNOTE ---
- General Post-Op/Procedure Note Date of Surgery/Procedure: 08/14/16 Operative Procedure(s): irrigation and debridement right foot ulcer Pre Op Diagnosis: right foot ulcer with abscess Post-Op Diagnosis: Same Anesthesia Technique: General LMA Primary Surgeon: Isaac Jackson Anesthesia Provider: Sierra LOVE in mLs: 5 Complications: None Condition: Good
--- NOTE | 2016-08-24 10:29 | OR ---
DATE OF OPERATION: 08/14/2016 SURGEON: Isaac Jackson MD OPERATION PERFORMED: Irrigation and debridement of right foot ulceration and abscess. PREOPERATIVE DIAGNOSIS: Right foot ulcer with abscess. POSTOPERATIVE DIAGNOSIS: Right foot ulcer with abscess. ANESTHESIA: General LMA. ANESTHESIA PROVIDER: Sierra Ramirez CRNA. ESTIMATED BLOOD LOSS: 5 mL. COMPLICATIONS: None. CONDITION: Stable. DESCRIPTION OF PROCEDURE: The patient was identified in the preoperative holding area. Proper site was marked and identified by the surgeon. The patient was taken back to the operating theater, where after adequate anesthesia, the patient's right lower extremity was sterilely prepped and draped in the usual sterile fashion. OR time-out was performed. The patient received 2 g IV Ancef. At this time, the abscess was identified near the fourth-fifth web interspace. On the plantar surface, there was noted to be necrotic skin over the top of the ulceration. This was debrided back. Next, the blunt dissection was taken into the abscess and deep cultures were then obtained, and sent for organism identification. At this time, all and necrotic tissue was irrigated and debrided back including soft tissue, and muscle. There was no bone resected. At this time, 6 L of normal saline was irrigated through the foot wound and it was packed with iodoform packing. A sterile soft dressing was applied. The patient tolerated the procedure well and sent to PACU in stable condition. We will continue with IV antibiotics. MMODAL /[id number]
--- NOTE | 2016-09-14 12:19 | PCM.DCSUM1 ---
[id number]. He has been seen and treated in the ED and with Orthopedics, however failed to return for follow up, question of noncompliance with taking antibiotics as outpatient as well. Orthopedics was consulted during hospital stay. Dr. Jackson took patient to OR for I&D of foot wound. He was MRSA positive, treated with vancomycin. MRI of rt foot confirmed osteomyelitis. PT was consulted for wound care. Patient is discharged with orders for OP IV abx therapy with vancomycin. was arranging this treatment regimen, transportation and housing assistance for patient. - Discharge Data Discharge Date: 08/18/16 (admit date 08/15/16) Discharge Disposition: Home, Self-Care 01 Condition: Good - Discharge Diagnosis/Problem(s) (1) Osteomyelitis of foot, right, acute SNOMED Code(s): 72927979 ICD Code: M86.171 - OTHER ACUTE OSTEOMYELITIS, RIGHT ANKLE AND FOOT Status : Acute Priority: High (2) Foot abscess, right SNOMED Code(s): 605248438 ICD Code: L02.611 - CUTANEOUS ABSCESS OF RIGHT FOOT Status: Acute Priority: High (3) Medically noncompliant SNOMED Code(s): 199841580 ICD Code: Z91.19 - PATIENT'S NONCOMPLIANCE W OTH MEDICAL TREATMENT AND REGIMEN Status: Acute Priority: High - Patient Summary/Data Operative Procedure(s) Performed: irrigation and debridement right foot ulcer Complications: None- during stay. -Concern is for noncompliance with outpatient IV abx regimen as he has been noncompliant prior to this hospital stay Consults: Consultations 08/13/16 16:45 Consult to Physical Therapy [PT Evaluation and Treatment] [CONS] Routine 08/13/16 16:46 Consult to Occupational Therapy [OT Evaluation and Treatment] [CONS] Routine Consult to Disintegrator Operator [CONS] Routine 08/13/16 20:01 Consult to Physician [CONS] Routine 08/14/16 07:44 Consult to Physical Therapy [PT Evaluation and Treatment] [CONS] Routine Recommended Follow-up Testing/Procedures: IV outpatient antibiotic regimen- Vancomycin Follow up with Orthopedic as directed Planned Operative Procedure(s) after DC: None at this time- pending orthopedics follow up and recommendation Hospital Course: As above - Patient Instructions Diet: Usual Diet as Tolerated Activity: Partial Weight Bearing (with crutches) Driving: Do Not Drive Showering/Bathing: May Shower Notify Provider of: Fever, Increased Pain, Nausea and/or Vomiting - Discharge Plan Prescriptions/Med Rec: Vancomycin Pharmacy to Dose [Pharmacy to Dose - Vancomycin] 1 dose .XX ASDIRECTED #30 each Home Medications: Home Meds Vancomycin Pharmacy to Dose [Pharmacy to Dose - Vancomycin] 1 dose .XX ASDIRECTED #30 each 08/18/16 [Rx] Patient Handouts: Bone and Joint Infections, Adult, PICC Insertion, Care After , Cellulitis, Adult, Agna-ca-Phco Forms: ED Department Discharge Referrals: Isaac Jackson MD [Physician] - - Discharge Summary/Plan Comment DC Time >30 min.: Yes (40 min) - General Info Date of Service: 08/18/16 Admission Dx/Problem (Free Text: Admission Diagnosis/Problem Admission Diagnosis/Problem Abscess Patient is seen this afternoon; Pain controlled, rt foot is elevated. VSS. Labs stable this am. Functional Status: Reports: pain controlled, tolerating diet, urinating - Review of Systems General: Denies: Fever HEENT: Reports: no symptoms Pulmonary: Reports: no symptoms Cardiovascular: Reports: No Symptoms Gastrointestinal: Reports: No symptoms. Denies: Diarrhea Musculoskeletal: Reports: leg pain Neurological: Reports: No Symptoms Psychiatric: Reports: no symptoms Systems Review Comment: Patient is slovak speaking only; language barrier is difficult to obtain ROS, use solid waste facility operator or solid waste facility operator Ipad service. - Patient Data Vitals - Most Recent: Last Vital Signs Temp 98.4 F 08/18/16 15:53 Pulse 80 08/18/16 15:53 Resp 12 08/18/16 15:53 BP 108/80 08/18/16 15:53 Pulse Ox 98 08/18/16 15:53 Weight - Most Recent: 135 lb 3.2 oz Med Orders - Current: Current Medications Discontinued Medications Hydrocodone Bitart/Acetaminophen ([place] 325-5 Mg) 1 tab PO Q6H PRN PRN Reason: Pain Last Admin: 08/18/16 04:50 Dose: 1 tab Bupivacaine HCl (Marcaine 0.25%) Confirm Administered Dose 30 ml .ROUTE .STK- MED ONE Stop: 08/14/16 08:42 Last Admin: 08/14/16 09:59 Dose: 17.5 ml Cefazolin Sodium (Ancef) Confirm Administered Dose 1 gm .ROUTE .STK-MED ONE Stop: 08/14/16 10:22 Cefazolin Sodium (Ancef) Confirm Administered Dose 1 gm .ROUTE .K-MED ONE Stop: 08/14/16 10:23 Diphtheria/Tetanus/Acell Pertussis (Boostrix) 0.5 ml IM .ONCE ONE Stop: 08/14/16 09:07 Last Admin: 08/18/16 16:47 Dose: 0.5 ml Enoxaparin Sodium (Lovenox) 40 mg SUBCUT DAILY [facility] Enoxaparin Sodium (Lovenox) 40 mg SUBCUT DAILY [facility] Last Admin: 08/18/16 09:48 Dose: 40 mg Fentanyl (Sublimaze) Confirm Administered Dose 100 mcg .ROUTE .K-MED ONE Stop: 08/14/16 09:38 Fentanyl (Sublimaze) Confirm Administered Dose 100 mcg .ROUTE .[facility] ONE Stop: 08/14/16 10:19 Gadobenate Dimeglumine (Multihance) 12 ml IVPUSH ONETIME ONE Stop: 08/13/16 16:20 Last Admin: 08/13/16 16:31 Dose: 12 ml Hydromorphone HCl (Dilaudid) Confirm Administered Dose 1 mg .ROUTE .[facility]-MED ONE Stop: 08/14/16 09:37 Lactated Ringer's (Ringers, Lactated) 1,000 mls @ 100 mls/hr IV ASDIRECTED [facility] Last Admin: 08/13/16 17:32 Dose: 100 mls/hr Piperacillin Sod/Tazobactam (Sod 4.5 gm/ Sodium Chloride) 100 mls @ 200 mls/hr IV Q8H [facility] Last Admin: 08/13/16 20:10 Dose: Not Given Vancomycin HCl 1 gm/ Sodium (Chloride) 250 mls @ 250 mls/hr IV Q12H [facility] Last Admin: 08/13/16 20:10 Dose: Not Given Piperacillin Sod/Tazobactam (Sod 4.5 gm/ Sodium Chloride) 100 mls @ 25 mls/hr IV Q8H [facility] Last Admin: 08/17/16 02:24 Dose: 25 mls/hr Vancomycin HCl 1 gm/ Sodium (Chloride) 250 mls @ 250 mls/hr IV ONETIME ONE Stop: 08/13/16 18:14 Last Admin: 08/13/16 23:07 Dose: Not Given Piperacillin Sod/Tazobactam (Sod 4.5 gm/ Sodium Chloride) 100 mls @ 200 mls/hr IV ONETIME ONE Stop: 08/13/16 17:44 Piperacillin Sod/Tazobactam (Sod 4.5 gm/ Sodium Chloride) 100 mls @ 200 mls/hr IV ONETIME ONE Stop: 08/13/16 17:29 Last Admin: 08/13/16 17:31 Dose: 200 mls/hr Vancomycin HCl 750 mg/ Sodium (Chloride) 250 mls @ 250 mls/hr IV Q12H [facility] Last Admin: 08/14/16 10:53 Dose: Not Given Lactated Ringer's (Ringers, Lactated) 1,000 mls @ 100 mls/hr IV ASDIRECTED [facility] Stop: 08/14/16 02:25 Lactated Ringer's (Ringers, Lactated) 1,000 mls @ 75 mls/hr IV ASDIRECTED [facility] Last Admin: 08/15/16 03:08 Dose: 75 mls/hr Vancomycin HCl 1 gm/ Sodium (Chloride) 250 mls @ 250 mls/hr IV ONETIME ONE Stop: 08/13/16 21:29 Vancomycin HCl 1 gm/ Sodium (Chloride) 250 mls @ 250 mls/hr IV ONETIME ONE Stop: 08/13/16 21:29 Vancomycin HCl 1 gm/ Sodium (Chloride) 250 mls @ 250 mls/hr IV ONETIME ONE Stop: 08/13/16 21:59 Last Admin: 08/13/16 21:45 Dose: 250 mls/hr Vancomycin HCl 750 mg/ Sodium (Chloride) 250 mls @ 250 mls/hr IV Q12H [facility] Last Admin: 08/15/16 14:37 Dose: Not Given Lidocaine HCl (Xylocaine-Mpf 1%) Confirm Administered Dose 6 mls @ as directed .ROUTE .STK-MED ONE Stop: 08/14/16 09:37 Lactated Ringer's (Ringers, Lactated) Confirm Administered Dose 2,000 mls @ as directed .ROUTE .STK-MED ONE Stop: 08/14/16 09:37 Vancomycin HCl 1 gm/ Sodium (Chloride) 250 mls @ 250 mls/hr IV BID@0100,1300 [facility] Last Admin: 08/17/16 13:07 Dose: Not Given Vancomycin HCl 1 gm/ Sodium (Chloride) 250 mls @ 250 mls/hr IV Q8H [facility] Last Admin: 08/18/16 15:47 Dose: Not Given Vancomycin HCl 1 gm/Vancomycin HCl 500 mg/ Sodium Chloride 500 mls @ 333.333 mls/hr IV ONETIME ONE Stop: 08/18/16 15:59 Last Admin: 08/18/16 14:48 Dose: 333.333 mls/hr Ketorolac Tromethamine (Toradol) 60 mg IVPUSH ONETIME ONE Stop: 08/13/16 17:01 Last Admin: 08/13/16 17:25 Dose: 60 mg Ketorolac Tromethamine (Toradol) 30 mg IVPUSH Q6H [facility] Stop: 08/15/16 17:01 Last Admin: 08/14/16 05:02 Dose: 30 mg Ketorolac Tromethamine (Toradol) 30 mg IVPUSH Q6H [facility] Stop: 08/16/16 18:01 Last Admin: 08/16/16 17:02 Dose: 30 mg Lidocaine HCl (Xylocaine-Mpf 1%) Confirm Administered Dose 30 ml .ROUTE .STK- MED ONE Stop: 08/14/16 08:42 Last Admin: 08/14/16 09:59 Dose: 17.5 ml Midazolam HCl (Versed 1 Mg/Ml) Confirm Administered Dose 2 mg .ROUTE .STK-MED ONE Stop: 08/14/16 09:38 Morphine Sulfate (Morphine) 1 mg IVPUSH Q4H PRN PRN Reason: Pain Last Admin: 08/17/16 14:53 Dose: 1 mg Ondansetron HCl (Zofran) Confirm Administered Dose 4 mg .ROUTE .STK-MED ONE Stop: 08/14/16 09:54 Propofol (Diprivan 20 Ml) Confirm Administered Dose 200 mg .ROUTE .STK-MED ONE Stop: 08/14/16 09:38 Sodium Chloride (Saline Flush) 10 ml FLUSH ASDIRECTED PRN PRN Reason: Keep Vein Open Last Admin: 08/13/16 16:32 Dose: 10 ml Vancomycin HCl (Pharmacy To Dose - Vancomycin) 1 dose .XX ASDIRECTED [facility] - Exam Quality Assessment: Reports: DVT prophylaxis General: Reports: alert, oriented, cooperative, no acute distress HEENT: Reports: Pupils equal, Pupils reactive, EOMI, Mucous membr. moist/pink Neck: Reports: supple Lungs: Reports: Clear to auscultation Cardiovascular: Reports: Regular Rate, Regular Rhythm Abdomen: Reports: bowel sounds present (Male) Exam: Deferred Rectal (Males) Exam: Deferred Extremities: Reports: other (dressing to foot CDI) Neurological: Reports: no new focal deficit Psy/Mental Status: Reports: alert, normal affect, normal mood *Q Meaningful Use (DIS) - VTE *Q VTE Criteria *Q: - Stroke *Q Stroke Criteria *Q: - AMI *Q AMI Criteria *Q:
--- NOTE | 2016-09-17 09:05 | OR ---
DATE OF OPERATION: 08/14/2016 SURGEON: Isaac Jackson MD ADDENDUM: It was 6 square cm of soft tissue debrided of the foot. MMODAL /[id number]
== END 2016-08-18 18:27 | disposition home or self-care (01) | DRG 580 ==
LOC: JD.ED 11:53 → JD.MS 15:10
PROVIDERS: ADMIT Internal Medicine Cardiovascular Disease; ATTEND Internal Medicine Cardiovascular Disease
PROC: 0JDQ3ZZ Extraction of Right Foot Subcutaneous Tissue and Fascia, Percutaneous Approach (ICD-10-PCS; principal; 2016-08-14)
PROC: 05H533Z Insertion of Infusion Device into Right Subclavian Vein, Percutaneous Approach (ICD-10-PCS; 2016-08-14)
PROC: 3E0234Z Introduction of Serum, Toxoid and Vaccine into Muscle, Percutaneous Approach (ICD-10-PCS; 2016-08-18)
DX: L02.611 Cutaneous abscess of right foot (principal); M86.9 Osteomyelitis, unspecified; B95.62 Methicillin resistant Staphylococcus aureus infection as the cause of diseases classified elsewhere; Z91.19 Patient's noncompliance with other medical treatment and regimen; Z23 Encounter for immunization
CPT/HCPCS: 00400; 36415; 36569; 73720-26-RT; 73720-RT; 80048; 80053; 80202; 83036; 83735; 85025; 85610; 85652; 85730; 86140; 87075; 87077; 87186; 87205; 87641; 90715; 97162-GP; 97167-GO; 97530-GO; 97530-GP; 99222; 99232; 99238; 99284; 99285-25; A9270-GY; A9577; C1751; J0690; J1170; J1650; J1885; J2250; J2270; J2405; J2543; J2704; J3010; J3370; J3490; J7030; J7040; J7050; J7120